=== PATIENT | male | born 1955 | race Two or more races ===

== ENCOUNTER 2017-10-30 15:08 | Inpatient (IN) | payer MEDICAID ==
[~2017-10-30] VITALS: Ht 170.2 cm; Wt 52.1 kg
[~2017-10-30 15:08] MED LIST: MORP1CAP22 PO; PANT40T PO; PERCOT PO
[2017-10-30] MEDS ORDERED: SODIUM CHLORIDE 0.9% 1,000 ML IV ONE ×2 (15:47)
[2017-10-30] MEDS ORDERED: PANTOPRAZOLE 40 MG/10 ML VIAL IV ONE (16:00)
[2017-10-30 17:37] LABS: Basophils # (auto) 0.1 uL; Basophils % (auto) 0.7 % (0.0-2.0); Eosinophils # (auto) 0.4 uL; Eosinophils % (auto) 5.5 % (0.0-7.0); Hematocrit 33.9 % (41.0-53.0); Lymphocytes # (auto) 0.5 uL; Mean Corpuscular Hemoglobin 27.9 pg (28.0-32.0); Mean Corpuscular Hgb Conc. 32.6 g/dL (32.0-36.0); Mean Corpuscular Volume 85.7 fL (80.0-100.0); Monocytes # (auto) 0.6 uL; Monocytes % (auto) 9.3 % (0.0-12.0); Neutrophils # (auto) 5.4 uL; Neutrophils % (auto) 77.5 % (37.0-80.0); Platelet Count (auto) 370 10^3/uL (140-450); Red Blood Cells 3.95 10^6/uL (4.5-5.90); White Blood Cell 6.9 10^3/uL (4.4-10.8)
[2017-10-30 17:53] LABS: INR 0.98 (0.9-1.15); Partial Thromboplastin Time 28.5 sec (23.78-33.04); Prothrombin Time 10.5 sec (9.27-12.13)
[2017-10-30 18:03] LABS: Alanine Aminotransferase 16 U/L (16-61); Alkaline Phosphatase 83 U/L (45-117); Anion Gap 6 (5-15); Aspartate Aminotransferase 14 U/L (15-37); BUN/Creatinine Ratio 16.9; Bilirubin, Total 0.2 mg/dL (0.2-1.0); Blood Urea Nitrogen 15 mg/dL (7-18); Calcium 8.7 mg/dL (8.5-10.1); Carbon Dioxide 26 mmol/L (21-32); Chloride 107 mmol/L (98-107); GFR African American 111 mL/min; GFR Non-African American 92 mL/min; Glucose 98 mg/dL (74-106); Potassium 3.6 mmol/L (3.5-5.1); Sodium 139 mmol/L (136-145); Total Protein 7.2 g/dL (6.4-8.2)
[2017-10-30 18:04] LABS: Red Cell Distribution Width 27.3 % (11.8-14.3)
[2017-10-30] MEDS ORDERED: HYDROcodone-ACET 5/325MG TAB PO PRN (20:00)
[2017-10-30] MEDS ORDERED: PROMETHAZINE HCL 25 MG/ML 1ML IV PRN (20:00)
[2017-10-30] MEDS ORDERED: MORPHINE SULF INJ 2 MG/ML SYRINGE 1ML IV PRN ×2 (20:00)
[2017-10-30] MEDS ORDERED: NITROGLYCERIN 0.4 MG SL TAB SL PRN (20:00)
[2017-10-30] MEDS ORDERED: ACETAMINOPHEN 500 MG TAB PO PRN (20:00)
[2017-10-30] MEDS ORDERED: TEMAZEPAM 15 MG CAP PO PRN (20:00)
[2017-10-30] MEDS ORDERED: cefTRIAXone 1GM/10ml IVPUSH 10 ML IV ONE (20:00)
[2017-10-30] MEDS ORDERED: LORazepam 0.5 MG TAB PO PRN (20:00)
[2017-10-30] MEDS ORDERED: OXYCODONE W/ ACETAMINOPHEN 5/325MG TABLET PO PRN (20:15)
[2017-10-30] MEDS ORDERED: HYDROmorphone HCL 2 MG/ML VL IV ONE (20:15)
[2017-10-30] MEDS ORDERED: HYDROmorphone HCL 2 MG/ML VL IV PRN (20:15)
[2017-10-30] MEDS: SODIUM CHLORIDE 0.9% 1,000 ML IV SCH (20:52)
[2017-10-30 22:45] VITALS: BP 135/72
[2017-10-30] MEDS ORDERED: metroNIDAZOLE 500MG/100ML 100 ML IV ONE (23:12)
[2017-10-31] MEDS ORDERED: metroNIDAZOLE 500MG/100ML 100 ML IV SCH
[2017-10-31] MEDS ORDERED: HYDROmorphone HCL 2 MG/ML VL ONE (00:11)
[2017-10-31] MEDS: SODIUM CHLORIDE 0.9% 1,000 ML IV SCH ×4 (03:52→18:40)
[2017-10-31] MEDS: HYDROmorphone HCL 2 MG/ML VL IV PRN ×2 (04:22→08:45)
[2017-10-31] MEDS ORDERED: CAPE1TAB11 PO (04:43)
[2017-10-31] MEDS ORDERED: OXYC325T14 PO (04:43)
[2017-10-31] MEDS ORDERED: FENT25DI2 TD (04:43)
[2017-10-31] MEDS ORDERED: DOCU100T15 PO (04:43)
[2017-10-31 05:08] VITALS: BP 123/71
[2017-10-31] MEDS: metroNIDAZOLE 500MG/100ML 100 ML IV SCH ×3 (05:38→18:39)
[2017-10-31 07:09] LABS: Urine Bacteria NONE SEEN /hpf (None Seen); Urine Blood Negative /uL (Negative); Urine Mucus FEW (None Seen); Urine Specific Gravity 1.016 (1.001-1.035); Urine Sperm PRESENT /hpf (None Seen); Urine WBC 2 /hpf (0 - 3)
[2017-10-31 09:00] VITALS: BP 126/71
[2017-10-31] MEDS ORDERED: cefTRIAXone 1GM/10ml IVPUSH 10 ML IV SCH ×2 (09:00)
[2017-10-31] MEDS ORDERED: PANTOPRAZOLE 40 MG TAB PO SCH (10:00)
[2017-10-31] MEDS ORDERED: MORPHINE SULF INJ 2 MG/ML SYRINGE 1ML IV PRN (12:00)
[2017-10-31] MEDS ORDERED: LORazepam 0.5 MG TAB PO PRN (12:00)
[2017-10-31] MEDS: PANTOPRAZOLE 40 MG TAB PO SCH (12:00)
[2017-10-31] MEDS ORDERED: NITROGLYCERIN 0.4 MG SL TAB SL PRN (12:00)
[2017-10-31] MEDS ORDERED: OXYCODONE W/ ACETAMINOPHEN 5/325MG TABLET PO PRN (12:00)
[2017-10-31 12:21] VITALS: BP 106/51
[2017-10-31] MEDS: OXYCODONE HCL 5MG TAB PO PRN ×2 (15:10→19:59)
[2017-10-31 17:04] VITALS: BP 112/68
[2017-10-31] MEDS ORDERED: Ensure Enlive Strawberry 8oz Bottle PO SCH (18:00)
[2017-10-31] MEDS: Ensure HIGH Protein Chocolate 8oz Bottle PO SCH (18:40)
[2017-10-31] MEDS ORDERED: MEPERIDINE HCL (25 MG/ML) 1ML VIAL IV ONE (21:30)
[2017-10-31] MEDS: SENNA 8.6 MG TAB PO SCH (21:50)
[2017-10-31 22:00] VITALS: BP 129/72
[2017-11-01] MEDS: metroNIDAZOLE 500MG/100ML 100 ML IV SCH ×4 (00:26→17:33)
[2017-11-01] MEDS: SODIUM CHLORIDE 0.9% 1,000 ML IV SCH ×3 (01:00→13:01)
[2017-11-01] MEDS: OXYCODONE HCL 5MG TAB PO PRN ×4 (02:51→20:50)
[2017-11-01 05:00] VITALS: BP 135/71
[2017-11-01 05:40] LABS: Basophils # (auto) 0 uL; Basophils % (auto) 0.7 % (0.0-2.0); Eosinophils # (auto) 0.8 uL; Eosinophils % (auto) 12.1 % (0.0-7.0); Hematocrit 29.5 % (41.0-53.0); Hemoglobin 9.9 g/dL (13.5-17.5); Lymphocytes # (auto) 0.6 uL; Lymphocytes % (auto) 9.1 % (10.0-50.0); Mean Corpuscular Hemoglobin 29.1 pg (28.0-32.0); Mean Corpuscular Hgb Conc. 33.6 g/dL (32.0-36.0); Mean Corpuscular Volume 86.6 fL (80.0-100.0); Monocytes # (auto) 0.6 uL; Monocytes % (auto) 9.8 % (0.0-12.0); Neutrophils # (auto) 4.4 uL; Neutrophils % (auto) 68.3 % (37.0-80.0); Platelet Count (auto) 322 10^3/uL (140-450); White Blood Cell 6.4 10^3/uL (4.4-10.8)
[2017-11-01 05:54] LABS: BUN/Creatinine Ratio 11.1; Calcium 7.9 mg/dL (8.5-10.1); Potassium 3.6 mmol/L (3.5-5.1)
[2017-11-01 06:18] LABS: Red Cell Distribution Width 25.9 % (11.8-14.3)
[2017-11-01 09:00] VITALS: BP 142/78
[2017-11-01] MEDS ORDERED: fentaNYL 25MCG/HR 25 MCG/HR PAT TD SCH (09:00)
[2017-11-01] MEDS ORDERED: fentaNYL 50MCG/HR 50 MCG/HR PAT TD SCH (10:00)
[2017-11-01] MEDS: Ensure HIGH Protein Chocolate 8oz Bottle PO SCH ×3 (10:05→17:33)
[2017-11-01] MEDS: PANTOPRAZOLE 40 MG TAB PO SCH (10:49)
[2017-11-01 13:00] VITALS: BP 142/76
[2017-11-01 17:00] VITALS: BP 140/74
[2017-11-01 21:56] VITALS: BP 138/78
[2017-11-01] MEDS: SENNA 8.6 MG TAB PO SCH (22:00)
[2017-11-02] MEDS: SODIUM CHLORIDE 0.9% 1,000 ML IV SCH ×2 (01:38→09:00)
[2017-11-02] MEDS: metroNIDAZOLE 500MG/100ML 100 ML IV SCH ×3 (01:38→12:00)
[2017-11-02] MEDS: OXYCODONE HCL 5MG TAB PO PRN ×4 (02:31→15:08)
[2017-11-02 04:52] VITALS: BP 127/75
[2017-11-02 06:32] LABS: Hematocrit 30.8 % (41.0-53.0); Hemoglobin 10.2 g/dL (13.5-17.5); Mean Corpuscular Hemoglobin 28.7 pg (28.0-32.0); Mean Corpuscular Hgb Conc. 33.3 g/dL (32.0-36.0); Mean Corpuscular Volume 86.1 fL (80.0-100.0); Platelet Count (auto) 360 10^3/uL (140-450); Red Blood Cells 3.57 10^6/uL (4.5-5.90); White Blood Cell 7.3 10^3/uL (4.4-10.8)
[2017-11-02 06:47] LABS: BUN/Creatinine Ratio 11.7; Potassium 3.4 mmol/L (3.5-5.1); Red Cell Distribution Width 26.6 % (11.8-14.3)
[2017-11-02 06:48] LABS: Band Neutrophils % (manual) 0; Basophils % (manual) 0 (0.0-2.0); Blast Cells 0; Metamyelocytes % 0; Myelocytes % 0; Promyelocytes % 0; Reactive Lymphocytes 0
[2017-11-02 08:00] VITALS: BP 141/74
[2017-11-02] MEDS: Ensure HIGH Protein Chocolate 8oz Bottle PO SCH ×2 (08:00→12:00)
[2017-11-02 08:12] LABS: Eosinophils % (manual) 16 (0-7); Lymphocytes % (manual) 8 (10.0-50.0); Monocytes % (manual) 8 (0-12)
[2017-11-02 09:17] VITALS: BP 141/74
[2017-11-02] MEDS: PANTOPRAZOLE 40 MG TAB PO SCH (10:23)
[2017-11-02 12:28] VITALS: BP 120/71
[2017-11-02 13:17] VITALS: BP 120/71
== END 2017-11-02 16:45 | disposition home or self-care (01) | DRG 254 ==
LOC: EDBD 15:08 → ER 15:11 → WEST WING 15:12 → ER 21:25 → TELE-WESTW 23:50 → WEST WING 11-01 02:08
PROVIDERS: ADMIT Anesthesiology; ATTEND Internal Medicine
DX: K62.7 Radiation proctitis (principal); R64 Cachexia; E44.0 Moderate protein-calorie malnutrition; K92.2 Gastrointestinal hemorrhage, unspecified; F11.20 Opioid dependence, uncomplicated; D62 Acute posthemorrhagic anemia; C18.9 Malignant neoplasm of colon, unspecified; Y84.2 Radiological procedure and radiotherapy as the cause of abnormal reaction of the patient, or of later complication, without mention of misadventure at the time of the procedure; E61.1 Iron deficiency; G89.29 Other chronic pain; Z88.6 Allergy status to analgesic agent; Z72.0 Tobacco use; Z83.3 Family history of diabetes mellitus; Z85.048 Personal history of other malignant neoplasm of rectum, rectosigmoid junction, and anus; Z91.19 Patient's noncompliance with other medical treatment and regimen; Z92.3 Personal history of irradiation; Z90.89 Acquired absence of other organs; Z80.9 Family history of malignant neoplasm, unspecified; Z80.1 Family history of malignant neoplasm of trachea, bronchus and lung; Z68.1 Body mass index [BMI] 19.9 or less, adult; Y93.89 Activity, other specified; Y92.89 Other specified places as the place of occurrence of the external cause; Y99.8 Other external cause status
CPT/HCPCS: 36415; 71045; 74176; 80048; 80053; 81001; 83880; 84484; 85007; 85025; 85027; 85610; 85730; 87081; 93005; 96361; 96365; 96375; 96376; C9113; J0696; J3490

== ENCOUNTER 2017-11-13 13:40 | Emergency (ER) | payer MEDICAID ==
[~2017-11-13] VITALS: Ht 175.3 cm; Wt 65.8 kg
[~2017-11-13 13:40] MED LIST changes: +CAPE1TAB11 PO; +DOCU100T15 PO; +FENT25DI2 TD; -MORP1CAP22 PO; +OXYC325T14 PO; -PERCOT PO
[2017-11-13] MEDS ORDERED: SODIUM CHLORIDE 0.9% 1,000 ML IV ONE (16:09)
[2017-11-13] MEDS ORDERED: PROMETHAZINE HCL 25 MG/ML 1ML IV PRN (16:15)
[2017-11-13] MEDS ORDERED: MORPHINE SULFATE 4 MG/ML SYR/VIAL IV ONE (16:15)
[2017-11-13 16:44] LABS: Basophils # (auto) 0.1 uL; Eosinophils # (auto) 0.3 uL; Hemoglobin 12.4 g/dL (13.5-17.5); Lymphocytes # (auto) 0.7 uL; Monocytes # (auto) 1.2 uL; Neutrophils % (auto) 74.3 % (37.0-80.0)
[2017-11-13 16:45] LABS: Basophils % (auto) 0.7 % (0.0-2.0); Eosinophils % (auto) 3.8 % (0.0-7.0); Hematocrit 37.1 % (41.0-53.0); Mean Corpuscular Hemoglobin 29.4 pg (28.0-32.0); Mean Corpuscular Hgb Conc. 33.5 g/dL (32.0-36.0); Mean Corpuscular Volume 87.7 fL (80.0-100.0); Monocytes % (auto) 13.2 % (0.0-12.0); Neutrophils # (auto) 6.7 uL; Platelet Count (auto) 503 10^3/uL (140-450); Red Blood Cells 4.23 10^6/uL (4.5-5.90)
[2017-11-13 16:49] LABS: Red Cell Distribution Width 22.5 % (11.8-14.3)
[2017-11-13 16:52] LABS: Albumin 3.4 g/dL (3.4-5.0); BUN/Creatinine Ratio 24.6; Magnesium 2.5 mg/dL (1.6-2.6); Potassium 3.9 mmol/L (3.5-5.1)
[2017-11-13 16:55] LABS: Bilirubin, Total 0.2 mg/dL (0.2-1.0); Total Protein 8.1 g/dL (6.4-8.2)
[2017-11-13 17:09] VITALS: BP 130/68
== END 2017-11-13 18:13 | disposition home or self-care (01) ==
LOC: EDBD 13:40 → ER 13:40
DX: R10.32 Left lower quadrant pain (principal); G89.4 Chronic pain syndrome; K21.9 Gastro-esophageal reflux disease without esophagitis; M19.90 Unspecified osteoarthritis, unspecified site; Z88.6 Allergy status to analgesic agent; Z88.8 Allergy status to other drugs, medicaments and biological substances; Z85.038 Personal history of other malignant neoplasm of large intestine
CPT/HCPCS: 36415; 74176; 80053; 83690; 83735; 85025; 96361; 96374; 96375; 99285; J2270; J2550; J7030; 93005

== ENCOUNTER 2017-11-18 05:32 | Emergency (ER) | payer MEDICAID ==
[~2017-11-18] VITALS: Ht 175.3 cm; Wt 59.0 kg
[2017-11-18] MEDS ORDERED: MORPHINE SULFATE 4 MG/ML SYR/VIAL IV ONE (07:00)
[2017-11-18] MEDS ORDERED: ONDANSETRON HCL 4 MG/2 ML VIAL IV ONE (07:00)
[2017-11-18] MEDS ORDERED: SODIUM CHLORIDE 0.9% 1,000 ML IV ONE ×2 (07:12)
[2017-11-18 07:20] VITALS: BP 128/76
[2017-11-18 07:53] LABS: Basophils # (auto) 0.1 uL; Basophils % (auto) 0.9 % (0.0-2.0); Eosinophils # (auto) 0.6 uL; Eosinophils % (auto) 7.8 % (0.0-7.0); Hematocrit 37.1 % (41.0-53.0); Hemoglobin 12.1 g/dL (13.5-17.5); Lymphocytes # (auto) 0.7 uL; Lymphocytes % (auto) 9.9 % (10.0-50.0); Mean Corpuscular Hemoglobin 29.2 pg (28.0-32.0); Mean Corpuscular Hgb Conc. 32.7 g/dL (32.0-36.0); Mean Corpuscular Volume 89.4 fL (80.0-100.0); Monocytes % (auto) 13.4 % (0.0-12.0); Neutrophils # (auto) 5.1 uL; Platelet Count (auto) 408 10^3/uL (140-450); Red Blood Cells 4.16 10^6/uL (4.5-5.90); Red Cell Distribution Width 18.5 % (11.8-14.3); White Blood Cell 7.5 10^3/uL (4.4-10.8)
[2017-11-18 08:04] LABS: INR 0.95 (0.9-1.15); Partial Thromboplastin Time 26.8 sec (23.78-33.04); Prothrombin Time 10.2 sec (9.27-12.13)
[2017-11-18 08:15] LABS: Alanine Aminotransferase 17 U/L (16-61); Albumin 3.2 g/dL (3.4-5.0); Alkaline Phosphatase 93 U/L (45-117); Amylase 115 U/L (25-115); Anion Gap 7 (5-15); Aspartate Aminotransferase 13 U/L (15-37); BUN/Creatinine Ratio 18.8; Bilirubin, Total 0.2 mg/dL (0.2-1.0); Blood Urea Nitrogen 13 mg/dL (7-18); Calcium 8.8 mg/dL (8.5-10.1); Carbon Dioxide 28 mmol/L (21-32); Chloride 106 mmol/L (98-107); GFR African American 149 mL/min; GFR Non-African American 123 mL/min; Glucose 89 mg/dL (74-106); Lipase 336 U/L (73-393); Magnesium 2.6 mg/dL (1.6-2.6); Sodium 141 mmol/L (136-145); Total Protein 7.9 g/dL (6.4-8.2)
[2017-11-18] MEDS ORDERED: HYDROcodone-ACET 10/325MG TAB PO ONE (11:00)
== END 2017-11-18 11:17 | disposition home or self-care (01) ==
LOC: EDBD 05:32 → ER 05:35
DX: R10.13 Epigastric pain (principal); R19.7 Diarrhea, unspecified; K21.9 Gastro-esophageal reflux disease without esophagitis; Z88.6 Allergy status to analgesic agent
CPT/HCPCS: 36415; 74176; 80053; 82150; 83605; 83690; 83735; 84484; 85025; 85610; 85730; 87040; 87077; 87186; 93005; 96361; 96374; 96375; 99285; J2270; J2405

== ENCOUNTER 2017-11-19 06:23 | Inpatient (IN) | payer MEDICAID ==
[~2017-11-19] VITALS: Ht 170.2 cm; Wt 55.9 kg
[2017-11-19 08:16] LABS: Basophils # (auto) 0.1 uL; Basophils % (auto) 0.8 % (0.0-2.0); Eosinophils # (auto) 0.4 uL; Eosinophils % (auto) 4.3 % (0.0-7.0); Hematocrit 36.2 % (41.0-53.0); Hemoglobin 11.8 g/dL (13.5-17.5); Lymphocytes # (auto) 0.8 uL; Mean Corpuscular Hemoglobin 29.2 pg (28.0-32.0); Mean Corpuscular Hgb Conc. 32.7 g/dL (32.0-36.0); Mean Corpuscular Volume 89.4 fL (80.0-100.0); Monocytes # (auto) 0.9 uL; Monocytes % (auto) 10.8 % (0.0-12.0); Neutrophils # (auto) 6.3 uL; Neutrophils % (auto) 74.1 % (37.0-80.0); Platelet Count (auto) 414 10^3/uL (140-450); Red Blood Cells 4.04 10^6/uL (4.5-5.90); Red Cell Distribution Width 18.1 % (11.8-14.3); White Blood Cell 8.5 10^3/uL (4.4-10.8)
[2017-11-19 08:26] LABS: Albumin 3.1 g/dL (3.4-5.0); BUN/Creatinine Ratio 15.9; Calcium 8.4 mg/dL (8.5-10.1)
[2017-11-19 08:29] LABS: Bilirubin, Total 0.2 mg/dL (0.2-1.0); Total Protein 7.5 g/dL (6.4-8.2)
[2017-11-19] MEDS ORDERED: MORPHINE SULFATE 4 MG/ML SYR/VIAL IV ONE (08:45)
[2017-11-19] MEDS ORDERED: ONDANSETRON HCL 4 MG/2 ML VIAL IV ONE (08:45)
[2017-11-19 09:03] LABS: INR 0.93 (0.9-1.15); Partial Thromboplastin Time 26.8 sec (23.78-33.04)
[2017-11-19] MEDS ORDERED: IOHEXOL 300 MG/ML 100ML BOTTLE IJ ONE (09:53)
[2017-11-19] MEDS ORDERED: NITROGLYCERIN 0.4 MG SL TAB SL PRN (10:00)
[2017-11-19] MEDS ORDERED: ACETAMINOPHEN 500 MG TAB PO PRN (10:00)
[2017-11-19] MEDS ORDERED: LORazepam 0.5 MG TAB PO PRN (10:00)
[2017-11-19] MEDS ORDERED: cefTRIAXone 1GM/10ml IVPUSH 10 ML IV ONE (10:00)
[2017-11-19] MEDS ORDERED: MORPHINE SULF INJ 2 MG/ML SYRINGE 1ML IV PRN (10:00)
[2017-11-19 10:10] LABS: Amylase 123 U/L (25-115); Lipase 333 U/L (73-393)
[2017-11-19] MEDS: SODIUM CHLORIDE 0.9% 1,000 ML IV SCH ×2 (11:01→19:52)
[2017-11-19] MEDS: PROMETHAZINE HCL 25 MG/ML 1ML IV PRN ×2 (11:02→15:40)
[2017-11-19] MEDS: PANTOPRAZOLE 40 MG TAB PO SCH (11:02)
[2017-11-19] MEDS: MORPHINE SULFATE 4 MG/ML SYR/VIAL IV PRN ×2 (11:02→15:40)
[2017-11-19] MEDS: metroNIDAZOLE 500MG/100ML 100 ML IV SCH ×3 (11:24→23:45)
[2017-11-19 11:49] LABS: Hematocrit 33.3 % (41.0-53.0)
[2017-11-19] MEDS: HYDROcodone-ACET 5/325MG TAB PO PRN ×2 (13:37→20:49)
[2017-11-19 18:12] LABS: Hematocrit 31.1 % (41.0-53.0); Hemoglobin 10.2 g/dL (13.5-17.5)
[2017-11-19] MEDS: OXYCODONE HCL 5MG TAB PO PRN (18:41)
[2017-11-19 20:30] VITALS: BP 125/69
[2017-11-19 21:15] VITALS: BP 102/52
[2017-11-19] MEDS: TEMAZEPAM 15 MG CAP PO PRN (21:57)
[2017-11-19] MEDS: MORPHINE SULF 15mg ER tab PO SCH (21:57)
[2017-11-20 02:26] LABS: Hematocrit 30.9 % (41.0-53.0); Hemoglobin 10.1 g/dL (13.5-17.5)
[2017-11-20] MEDS: HYDROcodone-ACET 5/325MG TAB PO PRN ×2 (03:19→12:18)
[2017-11-20] MEDS: SODIUM CHLORIDE 0.9% 1,000 ML IV SCH ×2 (04:35→18:00)
[2017-11-20] MEDS: metroNIDAZOLE 500MG/100ML 100 ML IV SCH ×3 (05:30→18:00)
[2017-11-20 05:43] VITALS: BP 145/72
[2017-11-20] MEDS: OXYCODONE HCL 5MG TAB PO PRN ×3 (06:11→20:21)
[2017-11-20 06:16] LABS: Basophils # (auto) 0.1 uL; Eosinophils # (auto) 0.5 uL; Eosinophils % (auto) 7.4 % (0.0-7.0); Hematocrit 32.4 % (41.0-53.0); Hemoglobin 10.8 g/dL (13.5-17.5); Lymphocytes # (auto) 0.9 uL; Mean Corpuscular Hgb Conc. 33.3 g/dL (32.0-36.0); Mean Corpuscular Volume 90.3 fL (80.0-100.0); Monocytes # (auto) 0.6 uL; Monocytes % (auto) 8.7 % (0.0-12.0); Neutrophils # (auto) 4.7 uL; Neutrophils % (auto) 69.9 % (37.0-80.0); Platelet Count (auto) 338 10^3/uL (140-450); Red Blood Cells 3.58 10^6/uL (4.5-5.90); Red Cell Distribution Width 17.4 % (11.8-14.3); White Blood Cell 6.8 10^3/uL (4.4-10.8)
[2017-11-20 06:37] LABS: Albumin 2.8 g/dL (3.4-5.0); Bilirubin, Total 0.4 mg/dL (0.2-1.0); Calcium 8.1 mg/dL (8.5-10.1); Total Protein 6.5 g/dL (6.4-8.2)
[2017-11-20 08:47] VITALS: BP 130/73
[2017-11-20] MEDS: cefTRIAXone 1GM/10ml IVPUSH 10 ML IV SCH (10:16)
[2017-11-20] MEDS: MORPHINE SULF 15mg ER tab PO SCH ×2 (10:16→22:55)
[2017-11-20] MEDS: PANTOPRAZOLE 40 MG TAB PO SCH (10:17)
[2017-11-20] MEDS: Ensure Enlive Strawberry 8oz Bottle PO SCH ×2 (11:48→18:00)
[2017-11-20 12:46] VITALS: BP 132/77
[2017-11-20 12:56] LABS: Urine Bacteria NONE SEEN /hpf (None Seen); Urine Blood Negative /uL (Negative); Urine Specific Gravity 1.002 (1.001-1.035); Urine WBC 2 /hpf (0 - 3)
[2017-11-20 17:06] VITALS: BP 119/71
[2017-11-20 17:58] LABS: Hematocrit 33.6 % (41.0-53.0); Hemoglobin 11.1 g/dL (13.5-17.5)
[2017-11-20] MEDS: TEMAZEPAM 15 MG CAP PO PRN (21:14)
[2017-11-20 22:00] VITALS: BP 133/82
[2017-11-21] MEDS: metroNIDAZOLE 500MG/100ML 100 ML IV SCH ×5 (00:22→23:32)
[2017-11-21] MEDS: SODIUM CHLORIDE 0.9% 1,000 ML IV SCH ×3 (02:19→12:59)
[2017-11-21] MEDS: HYDROcodone-ACET 5/325MG TAB PO PRN ×2 (02:20→12:59)
[2017-11-21 04:18] LABS: Basophils # (auto) 0.1 uL; Basophils % (auto) 0.9 % (0.0-2.0); Eosinophils # (auto) 0.6 uL; Eosinophils % (auto) 8.6 % (0.0-7.0); Hematocrit 30.8 % (41.0-53.0); Hemoglobin 10.1 g/dL (13.5-17.5); Lymphocytes # (auto) 0.7 uL; Lymphocytes % (auto) 8.8 % (10.0-50.0); Mean Corpuscular Hemoglobin 29.2 pg (28.0-32.0); Mean Corpuscular Hgb Conc. 32.8 g/dL (32.0-36.0); Mean Corpuscular Volume 89.2 fL (80.0-100.0); Monocytes # (auto) 0.8 uL; Monocytes % (auto) 11.2 % (0.0-12.0); Neutrophils # (auto) 5.3 uL; Neutrophils % (auto) 70.5 % (37.0-80.0); Platelet Count (auto) 312 10^3/uL (140-450); Red Blood Cells 3.45 10^6/uL (4.5-5.90); Red Cell Distribution Width 17.2 % (11.8-14.3); White Blood Cell 7.5 10^3/uL (4.4-10.8)
[2017-11-21] MEDS: OXYCODONE HCL 5MG TAB PO PRN ×3 (04:26→20:18)
[2017-11-21 04:37] LABS: Calcium 8.2 mg/dL (8.5-10.1)
[2017-11-21 04:40] LABS: BUN/Creatinine Ratio 21.9
[2017-11-21 04:46] VITALS: BP 132/72
[2017-11-21] MEDS: Ensure Enlive Strawberry 8oz Bottle PO SCH ×3 (07:51→17:51)
[2017-11-21 08:55] VITALS: BP 140/73
[2017-11-21] MEDS: cefTRIAXone 1GM/10ml IVPUSH 10 ML IV SCH (11:45)
[2017-11-21] MEDS: PANTOPRAZOLE 40 MG TAB PO SCH (11:46)
[2017-11-21] MEDS: MORPHINE SULF 15mg ER tab PO SCH ×2 (11:46→21:31)
[2017-11-21 12:00] VITALS: BP 127/72
[2017-11-21 16:53] VITALS: BP 108/65
[2017-11-21 21:36] VITALS: BP 94/47
[2017-11-21] MEDS: TEMAZEPAM 15 MG CAP PO PRN (23:32)
[2017-11-22] MEDS: OXYCODONE HCL 5MG TAB PO PRN ×2 (02:16→07:01)
[2017-11-22 04:51] VITALS: BP 143/80
[2017-11-22 05:32] LABS: Basophils # (auto) 0.1 uL; Basophils % (auto) 0.9 % (0.0-2.0); Eosinophils # (auto) 0.6 uL; Eosinophils % (auto) 7.6 % (0.0-7.0); Hematocrit 31.1 % (41.0-53.0); Hemoglobin 10.3 g/dL (13.5-17.5); Lymphocytes # (auto) 0.9 uL; Lymphocytes % (auto) 12.6 % (10.0-50.0); Mean Corpuscular Hemoglobin 29.4 pg (28.0-32.0); Mean Corpuscular Volume 89.1 fL (80.0-100.0); Monocytes # (auto) 1.2 uL; Monocytes % (auto) 16.2 % (0.0-12.0); Neutrophils # (auto) 4.7 uL; Neutrophils % (auto) 62.7 % (37.0-80.0); Platelet Count (auto) 299 10^3/uL (140-450); Red Blood Cells 3.49 10^6/uL (4.5-5.90); Red Cell Distribution Width 17.7 % (11.8-14.3); White Blood Cell 7.5 10^3/uL (4.4-10.8)
[2017-11-22 05:45] LABS: BUN/Creatinine Ratio 20.6; Calcium 8.5 mg/dL (8.5-10.1); Potassium 4.3 mmol/L (3.5-5.1)
[2017-11-22] MEDS: metroNIDAZOLE 500MG/100ML 100 ML IV SCH ×2 (05:58→12:02)
[2017-11-22] MEDS: HYDROcodone-ACET 5/325MG TAB PO PRN (06:00)
[2017-11-22] MEDS ORDERED: HYDROmorphone HCL 2 MG/ML VL IV PRN (08:45)
[2017-11-22 09:06] VITALS: BP 126/93
[2017-11-22] MEDS: cefTRIAXone 1GM/10ml IVPUSH 10 ML IV SCH (10:54)
[2017-11-22] MEDS: SODIUM CHLORIDE 0.9% 1,000 ML IV SCH ×2 (10:54→17:48)
[2017-11-22] MEDS: MORPHINE SULF 15mg ER tab PO SCH (10:54)
[2017-11-22] MEDS: Ensure Enlive Strawberry 8oz Bottle PO SCH ×2 (10:54→12:02)
[2017-11-22] MEDS: PANTOPRAZOLE 40 MG TAB PO SCH (10:55)
[2017-11-22 13:00] VITALS: BP 156/77
[2017-11-22 17:00] VITALS: BP 136/79
== END 2017-11-22 17:45 | disposition home or self-care (01) | DRG 240 ==
LOC: EDBD 06:23 → ER 06:23 → TELE 06:24 → TELE-WESTW 20:12
PROVIDERS: ADMIT Internal Medicine; ATTEND Internal Medicine
DX: C19 Malignant neoplasm of rectosigmoid junction (principal); K85.90 Acute pancreatitis without necrosis or infection, unspecified; E44.0 Moderate protein-calorie malnutrition; C79.9 Secondary malignant neoplasm of unspecified site; D50.0 Iron deficiency anemia secondary to blood loss (chronic); Z68.1 Body mass index [BMI] 19.9 or less, adult; D63.8 Anemia in other chronic diseases classified elsewhere; I70.8 Atherosclerosis of other arteries; K62.7 Radiation proctitis; K21.9 Gastro-esophageal reflux disease without esophagitis; Z88.6 Allergy status to analgesic agent; Z80.1 Family history of malignant neoplasm of trachea, bronchus and lung; Z83.3 Family history of diabetes mellitus; Z88.8 Allergy status to other drugs, medicaments and biological substances; Z92.3 Personal history of irradiation; Z72.0 Tobacco use; Z92.21 Personal history of antineoplastic chemotherapy
CPT/HCPCS: 36415; 74177; 80048; 80053; 81001; 82150; 83690; 85014; 85018; 85025; 85610; 85730; 87081; 96374; 96375; 96376; A6257; J0696; J2405; J3490

== ENCOUNTER 2017-12-17 13:53 | Inpatient (IN) | payer MEDICAID ==
[~2017-12-17] VITALS: Ht 172.7 cm; Wt 55.1 kg
[~2017-12-17 13:53] MED LIST changes: -DOCU100T15 PO; -FENT25DI2 TD
[2017-12-17 14:51] LABS: Basophils # (auto) 0 uL; Basophils % (auto) 0.4 % (0.0-2.0); Eosinophils # (auto) 0.1 uL; Eosinophils % (auto) 1.6 % (0.0-7.0); Hematocrit 31.8 % (41.0-53.0); Hemoglobin 10.4 g/dL (13.5-17.5); Lymphocytes # (auto) 0.5 uL; Lymphocytes % (auto) 6.4 % (10.0-50.0); Mean Corpuscular Hemoglobin 29.1 pg (28.0-32.0); Mean Corpuscular Hgb Conc. 32.8 g/dL (32.0-36.0); Mean Corpuscular Volume 88.7 fL (80.0-100.0); Monocytes # (auto) 0.9 uL; Monocytes % (auto) 11.4 % (0.0-12.0); Neutrophils # (auto) 6.6 uL; Neutrophils % (auto) 80.2 % (37.0-80.0); Platelet Count (auto) 372 10^3/uL (140-450); Red Blood Cells 3.59 10^6/uL (4.5-5.90); Red Cell Distribution Width 16.7 % (11.8-14.3); White Blood Cell 8.2 10^3/uL (4.4-10.8)
[2017-12-17 15:10] LABS: Albumin 2.9 g/dL (3.4-5.0); BUN/Creatinine Ratio 15.9; Bilirubin, Total 0.2 mg/dL (0.2-1.0); Calcium 8.6 mg/dL (8.5-10.1); Potassium 3.7 mmol/L (3.5-5.1); Total Protein 7.3 g/dL (6.4-8.2)
[2017-12-17] MEDS ORDERED: MORPHINE SULFATE 4 MG/ML SYR/VIAL IV ONE (15:30)
[2017-12-17] MEDS ORDERED: ONDANSETRON HCL 4 MG/2 ML VIAL IV ONE (15:30)
[2017-12-17 15:32] LABS: Urine Bacteria NONE SEEN /hpf (None Seen); Urine Blood Negative /uL (Negative); Urine WBC 5 /hpf (0 - 3)
[2017-12-17 15:34] LABS: INR 0.99 (0.9-1.15); Prothrombin Time 10.6 sec (9.27-12.13)
[2017-12-17] MEDS ORDERED: cefTRIAXone 1GM/10ml IVPUSH 10 ML IV ONE (16:30)
[2017-12-17] MEDS ORDERED: ACETAMINOPHEN 500 MG TAB PO PRN (16:30)
[2017-12-17] MEDS ORDERED: PROMETHAZINE HCL 25 MG/ML 1ML IV PRN (16:30)
[2017-12-17] MEDS ORDERED: MORPHINE SULF INJ 2 MG/ML SYRINGE 1ML IV PRN (16:30)
[2017-12-17] MEDS ORDERED: NITROGLYCERIN 0.4 MG SL TAB SL PRN (16:30)
[2017-12-17] MEDS: SODIUM CHLORIDE 0.9% 1,000 ML IV SCH (16:30)
[2017-12-17] MEDS: metroNIDAZOLE 500MG/100ML 100 ML IV SCH (17:25)
[2017-12-17] MEDS: ACETAMINOPHEN PO SCH ×2 (18:00→22:00)
[2017-12-17] MEDS: OXYCODONE PO SCH ×2 (18:00→22:00)
[2017-12-17] MEDS: CAPECITABINE 500 MG PO SCH (19:00)
[2017-12-17 19:40] VITALS: BP 127/73
[2017-12-17 19:46] LABS: Hematocrit 31.7 % (41.0-53.0); Hemoglobin 10.3 g/dL (13.5-17.5)
[2017-12-17] MEDS: MORPHINE SULFATE 4 MG/ML SYR/VIAL IV PRN (20:07)
[2017-12-17 22:12] VITALS: BP 127/73
[2017-12-17] MEDS: MEGESTROL ACET 400MG/10ML ORAL SUSP PO SCH (22:14)
[2017-12-17] MEDS: PANTOPRAZOLE 40 MG TAB PO SCH (22:14)
[2017-12-17] MEDS: MORPHINE SULF 30 mg ER tab PO SCH (22:15)
[2017-12-17] MEDS ORDERED: ONDA4TAB5 PO (22:39)
[2017-12-18] MEDS: SODIUM CHLORIDE 0.9% 1,000 ML IV SCH ×4 (00:20→22:45)
[2017-12-18] MEDS: metroNIDAZOLE 500MG/100ML 100 ML IV SCH ×3 (01:02→17:15)
[2017-12-18 01:09] LABS: Hematocrit 31.9 % (41.0-53.0); Hemoglobin 10.1 g/dL (13.5-17.5)
[2017-12-18] MEDS: MORPHINE SULFATE 4 MG/ML SYR/VIAL IV PRN ×5 (02:13→22:43)
[2017-12-18 05:03] VITALS: BP 119/61
[2017-12-18] MEDS: OXYCODONE PO SCH ×4 (05:48→22:00)
[2017-12-18] MEDS: ACETAMINOPHEN PO SCH ×4 (05:48→22:00)
[2017-12-18 08:00] VITALS: BP 123/69
[2017-12-18 08:07] LABS: Hematocrit 32.4 % (41.0-53.0); Hemoglobin 10.6 g/dL (13.5-17.5)
[2017-12-18] MEDS: CAPECITABINE 500 MG PO SCH ×2 (09:00→18:53)
[2017-12-18] MEDS: MORPHINE SULF 30 mg ER tab PO SCH ×2 (10:08→21:01)
[2017-12-18] MEDS: MEGESTROL ACET 400MG/10ML ORAL SUSP PO SCH ×2 (10:08→21:01)
[2017-12-18] MEDS: PANTOPRAZOLE 40 MG TAB PO SCH ×2 (10:09→21:02)
[2017-12-18] MEDS: cefTRIAXone 1GM/10ml IVPUSH 10 ML IV SCH (10:09)
[2017-12-18] MEDS: Ensure Enlive Strawberry 8oz Bottle PO SCH ×2 (12:01→18:00)
[2017-12-18 13:00] VITALS: BP 104/43
[2017-12-18 17:00] VITALS: BP 106/61
[2017-12-18 17:59] LABS: Hematocrit 31.3 % (41.0-53.0); Hemoglobin 10.2 g/dL (13.5-17.5)
[2017-12-18 22:55] VITALS: BP 109/63
[2017-12-19] MEDS: TEMAZEPAM 15 MG CAP PO PRN ×2 (00:32→22:41)
[2017-12-19] MEDS: metroNIDAZOLE 500MG/100ML 100 ML IV SCH ×3 (00:33→18:02)
[2017-12-19 01:56] VITALS: BP 141/54
[2017-12-19] MEDS: MORPHINE SULFATE 4 MG/ML SYR/VIAL IV PRN ×3 (03:26→14:16)
[2017-12-19 04:54] VITALS: BP 104/61
[2017-12-19] MEDS: OXYCODONE PO SCH ×4 (06:00→22:54)
[2017-12-19] MEDS: ACETAMINOPHEN PO SCH ×4 (06:00→22:54)
[2017-12-19 07:34] LABS: Basophils # (auto) 0 uL; Basophils % (auto) 0.5 % (0.0-2.0); Eosinophils # (auto) 0.1 uL; Eosinophils % (auto) 1.3 % (0.0-7.0); Hematocrit 32.8 % (41.0-53.0); Hemoglobin 10.7 g/dL (13.5-17.5); Lymphocytes # (auto) 0.5 uL; Lymphocytes % (auto) 5.8 % (10.0-50.0); Mean Corpuscular Hemoglobin 28.9 pg (28.0-32.0); Mean Corpuscular Hgb Conc. 32.6 g/dL (32.0-36.0); Mean Corpuscular Volume 88.8 fL (80.0-100.0); Monocytes # (auto) 0.9 uL; Monocytes % (auto) 11.5 % (0.0-12.0); Neutrophils # (auto) 6.5 uL; Neutrophils % (auto) 80.9 % (37.0-80.0); Platelet Count (auto) 350 10^3/uL (140-450); Red Cell Distribution Width 16.9 % (11.8-14.3); White Blood Cell 8.1 10^3/uL (4.4-10.8)
[2017-12-19 07:44] LABS: BUN/Creatinine Ratio 19.7; Calcium 8.3 mg/dL (8.5-10.1); Potassium 3.9 mmol/L (3.5-5.1)
[2017-12-19] MEDS: Ensure Enlive Strawberry 8oz Bottle PO SCH ×3 (08:00→18:02)
[2017-12-19] MEDS: cefTRIAXone 1GM/10ml IVPUSH 10 ML IV SCH (08:55)
[2017-12-19] MEDS: MEGESTROL ACET 400MG/10ML ORAL SUSP PO SCH ×2 (08:56→22:40)
[2017-12-19] MEDS: PANTOPRAZOLE 40 MG TAB PO SCH ×2 (08:56→22:47)
[2017-12-19] MEDS: CAPECITABINE 500 MG PO SCH ×2 (08:56→14:34)
[2017-12-19 09:00] VITALS: BP 125/76
[2017-12-19] MEDS: MORPHINE SULF 30 mg ER tab PO SCH (12:08)
[2017-12-19 13:00] VITALS: BP 112/66
[2017-12-19] MEDS: SODIUM CHLORIDE 0.9% 1,000 ML IV SCH ×2 (15:12→16:20)
[2017-12-19] MEDS ORDERED: LACTULOSE 20Gm/30ML SOLN PO ONE (15:15)
[2017-12-19] MEDS ORDERED: ONDANSETRON ODT 4 MG TAB PO PRN (15:45)
[2017-12-19 17:00] VITALS: BP 120/62
[2017-12-19 21:42] VITALS: BP 104/59
[2017-12-19] MEDS: HYDROmorphone HCL 2 MG/ML VL IV PRN (22:41)
[2017-12-20] MEDS: MORPHINE SULF 15mg ER tab PO SCH ×3 (00:51→21:33)
[2017-12-20] MEDS: metroNIDAZOLE 500MG/100ML 100 ML IV SCH ×2 (00:52→09:44)
[2017-12-20] MEDS: MORPHINE SULF 30 mg ER tab PO SCH ×2 (00:52→09:48)
[2017-12-20] MEDS: SODIUM CHLORIDE 0.9% 1,000 ML IV SCH ×4 (00:52→23:12)
[2017-12-20] MEDS: HYDROmorphone HCL 2 MG/ML VL IV PRN ×4 (02:49→13:04)
[2017-12-20] MEDS: LORazepam 0.5 MG TAB PO PRN ×2 (03:29→15:19)
[2017-12-20 05:37] VITALS: BP 111/65
[2017-12-20] MEDS: ACETAMINOPHEN PO SCH ×2 (06:00→12:00)
[2017-12-20] MEDS: OXYCODONE PO SCH ×2 (06:00→12:00)
[2017-12-20 07:05] LABS: Basophils # (auto) 0 uL; Basophils % (auto) 0.3 % (0.0-2.0); Eosinophils # (auto) 0.1 uL; Eosinophils % (auto) 0.8 % (0.0-7.0); Hematocrit 34.5 % (41.0-53.0); Lymphocytes # (auto) 0.5 uL; Lymphocytes % (auto) 5.6 % (10.0-50.0); Mean Corpuscular Hemoglobin 28.7 pg (28.0-32.0); Mean Corpuscular Volume 89.7 fL (80.0-100.0); Monocytes % (auto) 10.9 % (0.0-12.0); Neutrophils # (auto) 7.4 uL; Neutrophils % (auto) 82.4 % (37.0-80.0); Nucleated Red Blood Cells % 0.1 %; Platelet Count (auto) 398 10^3/uL (140-450); Red Blood Cells 3.85 10^6/uL (4.5-5.90); Red Cell Distribution Width 16.6 % (11.8-14.3)
[2017-12-20 07:24] LABS: Calcium 8.6 mg/dL (8.5-10.1); Potassium 3.7 mmol/L (3.5-5.1)
[2017-12-20 07:26] LABS: BUN/Creatinine Ratio 17.5
[2017-12-20 09:00] VITALS: BP 126/66
[2017-12-20] MEDS: CAPECITABINE 500 MG PO SCH ×2 (09:00→19:30)
[2017-12-20] MEDS: MEGESTROL ACET 400MG/10ML ORAL SUSP PO SCH ×2 (09:44→21:34)
[2017-12-20] MEDS: cefTRIAXone 1GM/10ml IVPUSH 10 ML IV SCH (09:44)
[2017-12-20] MEDS: PANTOPRAZOLE 40 MG TAB PO SCH ×2 (09:45→21:33)
[2017-12-20] MEDS: Ensure Enlive Strawberry 8oz Bottle PO SCH ×3 (09:47→18:40)
[2017-12-20 13:00] VITALS: BP 122/68
[2017-12-20] MEDS: MORPHINE SULFATE 10 MG/5 ML ORAL SOLN PO PRN ×2 (15:46→19:58)
[2017-12-20 17:22] VITALS: BP 147/105
[2017-12-20] MEDS: TEMAZEPAM 15 MG CAP PO PRN (21:33)
[2017-12-20 22:00] VITALS: BP 127/77
[2017-12-21] MEDS: MORPHINE SULFATE 10 MG/5 ML ORAL SOLN PO PRN ×4 (00:57→20:01)
[2017-12-21] MEDS: LORazepam 0.5 MG TAB PO PRN ×2 (02:44→22:54)
[2017-12-21 05:30] VITALS: BP 130/73
[2017-12-21] MEDS: SODIUM CHLORIDE 0.9% 1,000 ML IV SCH ×2 (05:46→18:10)
[2017-12-21 06:53] LABS: Basophils # (auto) 0 uL; Basophils % (auto) 0.3 % (0.0-2.0); Eosinophils # (auto) 0.1 uL; Eosinophils % (auto) 1.2 % (0.0-7.0); Hemoglobin 10.4 g/dL (13.5-17.5); Lymphocytes # (auto) 0.6 uL; Lymphocytes % (auto) 6.2 % (10.0-50.0); Mean Corpuscular Hemoglobin 29.1 pg (28.0-32.0); Mean Corpuscular Hgb Conc. 32.6 g/dL (32.0-36.0); Mean Corpuscular Volume 89.2 fL (80.0-100.0); Monocytes # (auto) 1.2 uL; Neutrophils % (auto) 80.3 % (37.0-80.0); Platelet Count (auto) 362 10^3/uL (140-450); Red Blood Cells 3.59 10^6/uL (4.5-5.90); Red Cell Distribution Width 16.9 % (11.8-14.3)
[2017-12-21 07:09] LABS: BUN/Creatinine Ratio 16.9; Calcium 8.3 mg/dL (8.5-10.1); Potassium 3.9 mmol/L (3.5-5.1)
[2017-12-21 09:00] VITALS: BP 124/79
[2017-12-21] MEDS: CAPECITABINE 500 MG PO SCH ×2 (09:00→18:10)
[2017-12-21] MEDS: MEGESTROL ACET 400MG/10ML ORAL SUSP PO SCH ×4 (10:00→22:25)
[2017-12-21] MEDS: Ensure Enlive Strawberry 8oz Bottle PO SCH ×3 (10:29→18:09)
[2017-12-21] MEDS: MORPHINE SULF 15mg ER tab PO SCH ×2 (10:30→22:21)
[2017-12-21] MEDS: PANTOPRAZOLE 40 MG TAB PO SCH ×2 (10:30→22:20)
[2017-12-21 13:00] VITALS: BP 112/61
[2017-12-21 17:00] VITALS: BP_SYST 112; BP_SYST 117; BP_DIAS 20; BP_DIAS 61
[2017-12-21 21:00] VITALS: BP 111/63
[2017-12-21 22:00] VITALS: BP 111/63
[2017-12-22] MEDS: SODIUM CHLORIDE 0.9% 1,000 ML IV SCH ×2 (00:16→08:50)
[2017-12-22] MEDS: TEMAZEPAM 15 MG CAP PO PRN (00:16)
[2017-12-22] MEDS ORDERED: HYDROmorphone HCL 2 MG/ML VL IV ONE (01:15)
[2017-12-22 04:54] VITALS: BP 131/83
[2017-12-22 08:31] LABS: Basophils # (auto) 0 uL; Basophils % (auto) 0.4 % (0.0-2.0); Eosinophils # (auto) 0.2 uL; Eosinophils % (auto) 1.5 % (0.0-7.0); Hematocrit 31.4 % (41.0-53.0); Hemoglobin 10.2 g/dL (13.5-17.5); Lymphocytes # (auto) 0.6 uL; Lymphocytes % (auto) 6.3 % (10.0-50.0); Mean Corpuscular Hemoglobin 28.9 pg (28.0-32.0); Mean Corpuscular Hgb Conc. 32.5 g/dL (32.0-36.0); Monocytes # (auto) 1.1 uL; Monocytes % (auto) 11.3 % (0.0-12.0); Neutrophils # (auto) 8.1 uL; Neutrophils % (auto) 80.5 % (37.0-80.0); Nucleated Red Blood Cells % 0.1 %; Platelet Count (auto) 392 10^3/uL (140-450); Red Blood Cells 3.53 10^6/uL (4.5-5.90); Red Cell Distribution Width 16.8 % (11.8-14.3); White Blood Cell 10.1 10^3/uL (4.4-10.8)
[2017-12-22] MEDS: CAPECITABINE 500 MG PO SCH (08:49)
[2017-12-22] MEDS: Ensure Enlive Strawberry 8oz Bottle PO SCH ×2 (08:50→12:14)
[2017-12-22] MEDS: PANTOPRAZOLE 40 MG TAB PO SCH (08:51)
[2017-12-22 09:00] VITALS: BP 130/78
[2017-12-22 09:07] LABS: BUN/Creatinine Ratio 22.4; Calcium 8.5 mg/dL (8.5-10.1)
[2017-12-22] MEDS ORDERED: MORPHINE SULF 15mg ER tab PO SCH (10:00)
[2017-12-22] MEDS ORDERED: HYDROmorphone HCL 2 MG TAB PO SCH (12:00)
[2017-12-22 13:00] VITALS: BP 121/69
[2017-12-22 14:46] VITALS: BP 121/69
== END 2017-12-22 16:18 | disposition home or self-care (01) | DRG 240 ==
LOC: EDBD 13:53 → ER 13:53 → EDUNIT# 13:53 → TELE 13:54 → TELE-CENTR 19:40
PROVIDERS: ADMIT Internal Medicine; ATTEND Internal Medicine
DX: C19 Malignant neoplasm of rectosigmoid junction (principal); E44.0 Moderate protein-calorie malnutrition; K62.5 Hemorrhage of anus and rectum; D63.8 Anemia in other chronic diseases classified elsewhere; K21.9 Gastro-esophageal reflux disease without esophagitis; N39.0 Urinary tract infection, site not specified; D62 Acute posthemorrhagic anemia; Z80.1 Family history of malignant neoplasm of trachea, bronchus and lung; Z83.3 Family history of diabetes mellitus; Z85.048 Personal history of other malignant neoplasm of rectum, rectosigmoid junction, and anus; Z68.1 Body mass index [BMI] 19.9 or less, adult; Z92.21 Personal history of antineoplastic chemotherapy; Z92.3 Personal history of irradiation; Z88.5 Allergy status to narcotic agent; Z88.8 Allergy status to other drugs, medicaments and biological substances
CPT/HCPCS: 36415; 74176; 80048; 80053; 81001; 82948; 85014; 85018; 85025; 85045; 85610; 87081; 87086; 93005; 94761; 96372; 96374; 96375; J0696; J2405; J3490; Q0162

== ENCOUNTER 2017-12-27 11:17 | Inpatient (IN) | payer MEDICAID ==
[~2017-12-27] VITALS: Ht 172.7 cm; Wt 54.5 kg
[~2017-12-27 11:17] MED LIST changes: +ONDA4TAB5 PO; -OXYC325T14 PO
[2017-12-27] MEDS ORDERED: SODIUM CHLORIDE 0.9% 500 ML IVB ONE (11:31)
[2017-12-27] MEDS ORDERED: PANTOPRAZOLE 40 MG/10 ML VIAL IV ONE (11:45)
[2017-12-27] MEDS ORDERED: ONDANSETRON HCL 4 MG/2 ML VIAL IV ONE (11:45)
[2017-12-27] MEDS ORDERED: HYDROmorphone HCL 2 MG/ML VL IV ONE (11:45)
[2017-12-27 12:27] LABS: Basophils # (auto) 0.1 uL; Eosinophils # (auto) 0.1 uL; Eosinophils % (auto) 1.2 % (0.0-7.0); Lymphocytes # (auto) 0.7 uL; Lymphocytes % (auto) 6.6 % (10.0-50.0); Neutrophils # (auto) 8.4 uL
[2017-12-27 12:30] LABS: Basophils % (auto) 0.6 % (0.0-2.0); Hematocrit 33.9 % (41.0-53.0); Hemoglobin 10.7 g/dL (13.5-17.5); Mean Corpuscular Hemoglobin 27.4 pg (28.0-32.0); Mean Corpuscular Hgb Conc. 31.4 g/dL (32.0-36.0); Monocytes # (auto) 1.2 uL; Monocytes % (auto) 11.2 % (0.0-12.0); Neutrophils % (auto) 80.4 % (37.0-80.0); Platelet Count (auto) 541 10^3/uL (140-450); Red Blood Cells 3.89 10^6/uL (4.5-5.90); Red Cell Distribution Width 16.8 % (11.8-14.3); White Blood Cell 10.5 10^3/uL (4.4-10.8)
[2017-12-27 12:58] LABS: Albumin 2.8 g/dL (3.4-5.0); BUN/Creatinine Ratio 17.5; Bilirubin, Total 0.2 mg/dL (0.2-1.0); Calcium 8.8 mg/dL (8.5-10.1); Magnesium 2.4 mg/dL (1.6-2.6); Potassium 3.8 mmol/L (3.5-5.1); Total Protein 7.8 g/dL (6.4-8.2)
[2017-12-27] MEDS ORDERED: IOHEXOL 300 MG/ML 100ML BOTTLE IJ ONE (13:09)
[2017-12-27] MEDS ORDERED: NITROGLYCERIN 0.4 MG SL TAB SL PRN (14:45)
[2017-12-27] MEDS ORDERED: ONDANSETRON HCL 4 MG/2 ML VIAL IV PRN (14:45)
[2017-12-27] MEDS ORDERED: MORPHINE SULFATE 4 MG/ML SYR/VIAL IV PRN (14:45)
[2017-12-27] MEDS: SODIUM CHLORIDE 0.9% 1,000 ML IV SCH (15:02)
[2017-12-27 20:48] LABS: Urine Bacteria NONE SEEN /hpf (None Seen); Urine Blood Negative /uL (Negative); Urine Specific Gravity 1.027 (1.001-1.035); Urine WBC <1 /hpf (0 - 3)
[2017-12-27 22:15] VITALS: BP 124/73
[2017-12-27] MEDS: MORPHINE SULFATE 4 MG/ML SYR/VIAL IV PRN (22:16)
[2017-12-27] MEDS: DOCUSATE SOD 100 MG CAP PO SCH (22:16)
[2017-12-27] MEDS ORDERED: OXY20CRT PO (23:22)
[2017-12-27] MEDS ORDERED: MORP60TA25 PO (23:22)
[2017-12-28] MEDS: HYDROcodone-ACET 5/325MG TAB PO PRN ×2 (01:05→19:48)
[2017-12-28] MEDS: SODIUM CHLORIDE 0.9% 1,000 ML IV SCH ×2 (03:40→18:35)
[2017-12-28] MEDS: MORPHINE SULFATE 4 MG/ML SYR/VIAL IV PRN ×2 (03:57→08:28)
[2017-12-28 05:08] VITALS: BP 118/68
[2017-12-28 06:51] LABS: Eosinophils # (auto) 0.2 uL; Lymphocytes # (auto) 0.6 uL
[2017-12-28 06:53] LABS: Basophils # (auto) 0.1 uL; Basophils % (auto) 0.7 % (0.0-2.0); Hematocrit 33.5 % (41.0-53.0); Lymphocytes % (auto) 7.5 % (10.0-50.0); Mean Corpuscular Hemoglobin 28.8 pg (28.0-32.0); Mean Corpuscular Volume 87.4 fL (80.0-100.0); Monocytes % (auto) 11.7 % (0.0-12.0); Neutrophils # (auto) 6.4 uL; Neutrophils % (auto) 78.1 % (37.0-80.0); Nucleated Red Blood Cells % 0.1 %; Platelet Count (auto) 483 10^3/uL (140-450); Red Blood Cells 3.83 10^6/uL (4.5-5.90); Red Cell Distribution Width 16.9 % (11.8-14.3); White Blood Cell 8.2 10^3/uL (4.4-10.8)
[2017-12-28 06:58] LABS: INR 0.99 (0.9-1.15); Partial Thromboplastin Time 29.5 sec (23.78-33.04); Prothrombin Time 10.6 sec (9.27-12.13)
[2017-12-28 09:00] VITALS: BP 125/78
[2017-12-28] MEDS ORDERED: OXYCODONE HCL 5MG TAB PO STA (09:13)
[2017-12-28] MEDS ORDERED: TEMAZEPAM 15 MG CAP PO PRN (09:15)
[2017-12-28] MEDS: PANTOPRAZOLE 40 MG TAB PO SCH (09:58)
[2017-12-28] MEDS: MORPHINE SULF 30 mg ER tab PO SCH ×2 (09:58→21:51)
[2017-12-28] MEDS: DOCUSATE SOD 100 MG CAP PO SCH ×2 (09:59→21:51)
[2017-12-28 13:00] VITALS: BP 128/72
[2017-12-28] MEDS: OXYCODONE HCL 5MG TAB PO PRN ×3 (16:18→22:48)
[2017-12-28 17:00] VITALS: BP 132/79
[2017-12-28 21:58] VITALS: BP 123/76
[2017-12-29 05:17] VITALS: BP 138/78
[2017-12-29] MEDS: OXYCODONE HCL 5MG TAB PO PRN (05:35)
[2017-12-29] MEDS: SODIUM CHLORIDE 0.9% 1,000 ML IV SCH (06:39)
[2017-12-29 06:42] LABS: Basophils # (auto) 0 uL; Eosinophils # (auto) 0.2 uL; Lymphocytes # (auto) 0.7 uL; Monocytes # (auto) 0.9 uL; Red Cell Distribution Width 16.8 % (11.8-14.3); White Blood Cell 7.8 10^3/uL (4.4-10.8)
[2017-12-29 06:45] LABS: Basophils % (auto) 0.5 % (0.0-2.0); Eosinophils % (auto) 2.6 % (0.0-7.0); Hematocrit 32.1 % (41.0-53.0); Hemoglobin 10.5 g/dL (13.5-17.5); Lymphocytes % (auto) 8.6 % (10.0-50.0); Mean Corpuscular Hemoglobin 28.6 pg (28.0-32.0); Mean Corpuscular Hgb Conc. 32.7 g/dL (32.0-36.0); Mean Corpuscular Volume 87.6 fL (80.0-100.0); Monocytes % (auto) 11.9 % (0.0-12.0); Neutrophils % (auto) 76.4 % (37.0-80.0); Platelet Count (auto) 445 10^3/uL (140-450); Red Blood Cells 3.66 10^6/uL (4.5-5.90)
[2017-12-29 07:00] LABS: Calcium 8.3 mg/dL (8.5-10.1); Potassium 3.6 mmol/L (3.5-5.1)
[2017-12-29 09:00] VITALS: BP 136/76
[2017-12-29] MEDS: DOCUSATE SOD 100 MG CAP PO SCH (09:27)
[2017-12-29] MEDS: MORPHINE SULF 30 mg ER tab PO SCH (09:28)
[2017-12-29] MEDS: PANTOPRAZOLE 40 MG TAB PO SCH (09:28)
[2017-12-29 13:00] VITALS: BP 140/74
== END 2017-12-29 15:23 | disposition home or self-care (01) | DRG 240 ==
LOC: EDBD 11:17 → ER 11:17 → EDUNIT# 11:17 → TELE 11:18 → TELE-CENTR 21:55
PROVIDERS: ADMIT Internal Medicine; ATTEND Internal Medicine
DX: C20 Malignant neoplasm of rectum (principal); E44.0 Moderate protein-calorie malnutrition; C19 Malignant neoplasm of rectosigmoid junction; E88.09 Other disorders of plasma-protein metabolism, not elsewhere classified; D62 Acute posthemorrhagic anemia; D63.8 Anemia in other chronic diseases classified elsewhere; F17.210 Nicotine dependence, cigarettes, uncomplicated; G89.29 Other chronic pain; K62.5 Hemorrhage of anus and rectum; K21.9 Gastro-esophageal reflux disease without esophagitis; M54.9 Dorsalgia, unspecified; Z83.3 Family history of diabetes mellitus; Z85.048 Personal history of other malignant neoplasm of rectum, rectosigmoid junction, and anus; Z68.1 Body mass index [BMI] 19.9 or less, adult; Z92.21 Personal history of antineoplastic chemotherapy; Z88.5 Allergy status to narcotic agent; Z88.8 Allergy status to other drugs, medicaments and biological substances; Z92.3 Personal history of irradiation
CPT/HCPCS: 36415; 74177; 80048; 80053; 81001; 82150; 83690; 83735; 85025; 85610; 85730; 86850; 86900; 86901; 87081; 93005; 96361; 96374; 96375; C9113; J2405

== ENCOUNTER 2018-01-04 14:08 | Inpatient (IN) | payer MEDICAID ==
[~2018-01-04] VITALS: Ht 172.7 cm; Wt 63.5 kg
[~2018-01-04 14:08] MED LIST changes: -CAPE1TAB11 PO; +MORP60TA25 PO; +OXY20CRT PO
[2018-01-04] MEDS ORDERED: SODIUM CHLORIDE 0.9% 500 ML IVB ONE (14:18)
[2018-01-04] MEDS ORDERED: ONDANSETRON HCL 4 MG/2 ML VIAL IV ONE (14:30)
[2018-01-04] MEDS ORDERED: HYDROmorphone HCL 2 MG/ML VL IV ONE (14:30)
[2018-01-04 15:57] LABS: Basophils # (auto) 0.1 uL; Eosinophils # (auto) 0.2 uL; Lymphocytes # (auto) 0.7 uL; Neutrophils # (auto) 6.5 uL; White Blood Cell 8.5 10^3/uL (4.4-10.8)
[2018-01-04 15:59] LABS: Basophils % (auto) 0.7 % (0.0-2.0); Eosinophils % (auto) 2.3 % (0.0-7.0); Hematocrit 29.6 % (41.0-53.0); Lymphocytes % (auto) 8.1 % (10.0-50.0); Mean Corpuscular Hemoglobin 29.1 pg (28.0-32.0); Mean Corpuscular Hgb Conc. 33.6 g/dL (32.0-36.0); Mean Corpuscular Volume 86.6 fL (80.0-100.0); Monocytes % (auto) 12.2 % (0.0-12.0); Neutrophils % (auto) 76.7 % (37.0-80.0); Platelet Count (auto) 444 10^3/uL (140-450); Red Blood Cells 3.42 10^6/uL (4.5-5.90)
[2018-01-04 16:13] LABS: Albumin 2.8 g/dL (3.4-5.0); BUN/Creatinine Ratio 14.6; Bilirubin, Total 0.1 mg/dL (0.2-1.0); Calcium 8.3 mg/dL (8.5-10.1); Potassium 3.9 mmol/L (3.5-5.1)
[2018-01-04] MEDS ORDERED: LEVOFLOXACIN 500MG 100 ML IV ONE (17:00)
[2018-01-04] MEDS: SODIUM CHLORIDE 0.9% 1,000 ML IV SCH (17:03)
[2018-01-04] MEDS: PANTOPRAZOLE 40 MG TAB PO SCH (17:06)
[2018-01-04] MEDS: HYDROcodone-ACET 5/325MG TAB PO PRN (17:38)
[2018-01-04 19:21] LABS: Urine Bacteria NONE SEEN /hpf (None Seen); Urine Blood Negative /uL (Negative); Urine Specific Gravity 1.027 (1.001-1.035); Urine WBC 1 /hpf (0 - 3)
[2018-01-04] MEDS: metroNIDAZOLE 500MG/100ML 100 ML IV SCH (19:40)
[2018-01-04] MEDS: HYDROmorphone HCL 2 MG/ML VL IV PRN ×2 (19:40→22:27)
[2018-01-04 21:25] VITALS: BP 119/71
[2018-01-04 22:23] VITALS: BP 119/71
[2018-01-05] MEDS: metroNIDAZOLE 500MG/100ML 100 ML IV SCH ×3 (01:25→18:01)
[2018-01-05] MEDS: SODIUM CHLORIDE 0.9% 1,000 ML IV SCH ×3 (02:57→23:00)
[2018-01-05] MEDS: HYDROmorphone HCL 2 MG/ML VL IV PRN ×5 (03:46→20:28)
[2018-01-05 05:22] VITALS: BP 129/70
[2018-01-05 06:12] LABS: Basophils # (auto) 0.1 uL; Basophils % (auto) 0.7 % (0.0-2.0); Hemoglobin 10.6 g/dL (13.5-17.5); Mean Corpuscular Hemoglobin 28.6 pg (28.0-32.0); Nucleated Red Blood Cells % 0.1 %; Red Blood Cells 3.71 10^6/uL (4.5-5.90)
[2018-01-05 06:14] LABS: Eosinophils # (auto) 0.1 uL; Eosinophils % (auto) 1.8 % (0.0-7.0); Hematocrit 32.6 % (41.0-53.0); Lymphocytes # (auto) 0.6 uL; Lymphocytes % (auto) 7.2 % (10.0-50.0); Mean Corpuscular Hgb Conc. 32.5 g/dL (32.0-36.0); Monocytes # (auto) 0.8 uL; Monocytes % (auto) 9.3 % (0.0-12.0); Neutrophils # (auto) 6.5 uL; Platelet Count (auto) 451 10^3/uL (140-450); Red Cell Distribution Width 17.2 % (11.8-14.3); White Blood Cell 8.1 10^3/uL (4.4-10.8)
[2018-01-05 06:26] LABS: BUN/Creatinine Ratio 11.5; Calcium 8.1 mg/dL (8.5-10.1); Potassium 3.7 mmol/L (3.5-5.1)
[2018-01-05 08:34] VITALS: BP 146/72
[2018-01-05] MEDS: PANTOPRAZOLE 40 MG TAB PO SCH (11:28)
[2018-01-05 12:03] VITALS: BP 120/70
[2018-01-05] MEDS: LEVOFLOXACIN 500MG 100 ML IV SCH (13:30)
[2018-01-05] MEDS ORDERED: LACTULOSE 20Gm/30ML SOLN PO SCH (15:00)
[2018-01-05 17:22] VITALS: BP 119/70
[2018-01-05] MEDS ORDERED: Ensure Enlive Strawberry 8oz Bottle PO SCH (18:00)
[2018-01-05] MEDS: HYDROcodone-ACET 5/325MG TAB PO PRN (18:01)
[2018-01-05 21:49] VITALS: BP 99/55
[2018-01-05] MEDS ORDERED: LACTULOSE 20Gm/30ML SOLN PO PRN (22:00)
[2018-01-06] MEDS: HYDROcodone-ACET 5/325MG TAB PO PRN (00:02)
[2018-01-06] MEDS: SODIUM CHLORIDE 0.9% 1,000 ML IV SCH (00:25)
[2018-01-06] MEDS: metroNIDAZOLE 500MG/100ML 100 ML IV SCH ×2 (01:35→09:34)
[2018-01-06] MEDS: HYDROmorphone HCL 2 MG/ML VL IV PRN ×3 (01:41→09:35)
[2018-01-06 04:38] VITALS: BP 133/81
[2018-01-06 08:05] LABS: Basophils # (auto) 0.1 uL; Basophils % (auto) 0.7 % (0.0-2.0); Eosinophils # (auto) 0.1 uL; Eosinophils % (auto) 1.3 % (0.0-7.0); Hematocrit 31.5 % (41.0-53.0); Hemoglobin 10.2 g/dL (13.5-17.5); Lymphocytes # (auto) 0.6 uL; Lymphocytes % (auto) 6.9 % (10.0-50.0); Mean Corpuscular Hgb Conc. 32.3 g/dL (32.0-36.0); Mean Corpuscular Volume 86.6 fL (80.0-100.0); Monocytes # (auto) 0.8 uL; Monocytes % (auto) 9.3 % (0.0-12.0); Neutrophils # (auto) 6.8 uL; Neutrophils % (auto) 81.8 % (37.0-80.0); Platelet Count (auto) 432 10^3/uL (140-450); Red Blood Cells 3.64 10^6/uL (4.5-5.90); White Blood Cell 8.3 10^3/uL (4.4-10.8)
[2018-01-06 08:18] LABS: BUN/Creatinine Ratio 12.2; Calcium 8.6 mg/dL (8.5-10.1); Potassium 3.8 mmol/L (3.5-5.1)
[2018-01-06 09:00] VITALS: BP 137/75
[2018-01-06] MEDS: PANTOPRAZOLE 40 MG TAB PO SCH (09:49)
[2018-01-06] MEDS: LEVOFLOXACIN 500MG 100 ML IV SCH (11:01)
[2018-01-06] MEDS ORDERED: HYDROmorphone HCL 2 MG/ML VL IV ONE (12:45)
[2018-01-06 13:00] VITALS: BP 122/74
[2018-01-06 13:26] VITALS: BP 122/74
== END 2018-01-06 14:20 | disposition home or self-care (01) | DRG 240 ==
LOC: EDBD 14:08 → ER 14:14 → OVERFLOW 14:15 → EAST 21:29
PROVIDERS: ADMIT Internal Medicine; ATTEND Internal Medicine
DX: C20 Malignant neoplasm of rectum (principal); E44.0 Moderate protein-calorie malnutrition; K21.9 Gastro-esophageal reflux disease without esophagitis; F17.210 Nicotine dependence, cigarettes, uncomplicated; Z60.2 Problems related to living alone; G89.29 Other chronic pain; Z68.21 Body mass index [BMI] 21.0-21.9, adult; Z88.5 Allergy status to narcotic agent; Z88.8 Allergy status to other drugs, medicaments and biological substances; Z83.3 Family history of diabetes mellitus; Z85.048 Personal history of other malignant neoplasm of rectum, rectosigmoid junction, and anus
CPT/HCPCS: 36415; 74018; 80048; 80053; 81001; 83690; 85025; 86850; 86900; 86901; 87081; 94761; 96361; 96365; 96366; 96375; J1956; J2405; J3490

== ENCOUNTER 2018-01-12 19:15 | Emergency (ER) | payer MEDICAID ==
[~2018-01-12] VITALS: Ht 167.6 cm; Wt 59.0 kg
[2018-01-12] MEDS ORDERED: MORPHINE SULFATE 4 MG/ML SYR/VIAL IV ONE (20:00)
[2018-01-12] MEDS ORDERED: ONDANSETRON HCL 4 MG/2 ML VIAL IV ONE ×2 (20:00→21:30)
[2018-01-12 20:36] LABS: Basophils # (auto) 0 uL; Basophils % (auto) 0.5 % (0.0-2.0); Eosinophils # (auto) 0.1 uL; Eosinophils % (auto) 1.5 % (0.0-7.0); Hematocrit 31.7 % (41.0-53.0); Hemoglobin 10.5 g/dL (13.5-17.5); Lymphocytes # (auto) 0.8 uL; Lymphocytes % (auto) 9.3 % (10.0-50.0); Monocytes # (auto) 1.1 uL; Monocytes % (auto) 12.4 % (0.0-12.0); Neutrophils # (auto) 6.9 uL; Neutrophils % (auto) 76.3 % (37.0-80.0); Platelet Count (auto) 446 10^3/uL (140-450); Red Blood Cells 3.73 10^6/uL (4.5-5.90); Red Cell Distribution Width 17.1 % (11.8-14.3)
[2018-01-12 20:51] LABS: Albumin 2.7 g/dL (3.4-5.0); Calcium 8.3 mg/dL (8.5-10.1); Potassium 4.1 mmol/L (3.5-5.1)
[2018-01-12 20:54] LABS: BUN/Creatinine Ratio 17.3; Bilirubin, Total 0.3 mg/dL (0.2-1.0); Total Protein 7.3 g/dL (6.4-8.2)
[2018-01-12] MEDS ORDERED: HYDROmorphone HCL 2 MG/ML VL IV ONE (21:30)
[2018-01-12] MEDS ORDERED: SODIUM CHLORIDE 0.9% 1,000 ML IV ONE (21:30)
[2018-01-12 21:42] LABS: Urine Bacteria NONE SEEN /hpf (None Seen); Urine Blood Negative /uL (Negative); Urine Specific Gravity 1.006 (1.001-1.035); Urine WBC 1 /hpf (0 - 3)
[2018-01-13] MEDS ORDERED: MORPHINE SULFATE 4 MG/ML SYR/VIAL IV ONE (02:15)
[2018-01-13] MEDS ORDERED: ONDANSETRON HCL 4 MG/2 ML VIAL IV ONE (02:15)
[2018-01-13 03:42] VITALS: BP 107/54
[2018-01-13] MEDS ORDERED: HYDROcodone-ACET 10/325MG TAB PO ONE (05:00)
== END 2018-01-13 06:28 | disposition home or self-care (01) ==
LOC: ER 19:15 → EDBD 19:15 → EDUNIT# 19:15 → ER 01-13 06:28
DX: K62.7 Radiation proctitis (principal); K56.41 Fecal impaction; K62.5 Hemorrhage of anus and rectum; K21.9 Gastro-esophageal reflux disease without esophagitis; F17.210 Nicotine dependence, cigarettes, uncomplicated; Z88.8 Allergy status to other drugs, medicaments and biological substances; Z88.6 Allergy status to analgesic agent; Z79.899 Other long term (current) drug therapy; Z85.048 Personal history of other malignant neoplasm of rectum, rectosigmoid junction, and anus
CPT/HCPCS: 36415; 74176; 80053; 81001; 82150; 83690; 85025; 96361; 96374; 96375; 96376; 99285; J1170; J2270; J2405; J7030

== ENCOUNTER 2018-01-16 12:05 | Emergency (ER) | payer MEDICAID ==
[~2018-01-16] VITALS: Ht 30.5 cm; Wt 0.5 kg
[2018-01-16] MEDS ORDERED: SODIUM CHLORIDE 0.9% 1,000 ML IV ONE (12:32)
[2018-01-16] MEDS ORDERED: IOHEXOL 300 MG/ML 100ML BOTTLE IJ ONE (12:37)
[2018-01-16] MEDS ORDERED: HYDROmorphone HCL 2 MG/ML VL IV ONE (12:45)
[2018-01-16] MEDS ORDERED: PROMETHAZINE HCL 25 MG/ML 1ML IV PRN (12:45)
[2018-01-16 12:58] LABS: Basophils # (auto) 0.1 uL; Eosinophils # (auto) 0.1 uL; Eosinophils % (auto) 1.1 % (0.0-7.0); Lymphocytes # (auto) 0.9 uL; Nucleated Red Blood Cells % 0.1 %; Red Cell Distribution Width 17.7 % (11.8-14.3)
[2018-01-16 13:00] LABS: Basophils % (auto) 0.6 % (0.0-2.0); Hematocrit 32.7 % (41.0-53.0); Hemoglobin 10.6 g/dL (13.5-17.5); Lymphocytes % (auto) 7.9 % (10.0-50.0); Mean Corpuscular Hemoglobin 27.4 pg (28.0-32.0); Mean Corpuscular Hgb Conc. 32.5 g/dL (32.0-36.0); Mean Corpuscular Volume 84.4 fL (80.0-100.0); Monocytes # (auto) 1.1 uL; Monocytes % (auto) 10.1 % (0.0-12.0); Neutrophils % (auto) 80.3 % (37.0-80.0); Platelet Count (auto) 511 10^3/uL (140-450); Red Blood Cells 3.88 10^6/uL (4.5-5.90); White Blood Cell 11.2 10^3/uL (4.4-10.8)
[2018-01-16 13:17] LABS: Alanine Aminotransferase 20 U/L (16-61); Albumin 2.9 g/dL (3.4-5.0); Anion Gap 8 (5-15); Aspartate Aminotransferase 16 U/L (15-37); BUN/Creatinine Ratio 15.7; Blood Urea Nitrogen 13 mg/dL (7-18); Calcium 8.3 mg/dL (8.5-10.1); Carbon Dioxide 25 mmol/L (21-32); Chloride 105 mmol/L (98-107); GFR African American 121 mL/min; GFR Non-African American 100 mL/min; Glucose 130 mg/dL (74-106); Lipase 189 U/L (73-393); Magnesium 2.4 mg/dL (1.6-2.6); Potassium 3.8 mmol/L (3.5-5.1); Sodium 138 mmol/L (136-145)
[2018-01-16 13:23] LABS: Alkaline Phosphatase 103 U/L (45-117); Bilirubin, Total 0.2 mg/dL (0.2-1.0); Total Protein 7.6 g/dL (6.4-8.2)
[2018-01-16] MEDS ORDERED: MILK OF MAGNESIA 30ML SUSP PO ONE (14:30)
[2018-01-16 16:24] LABS: Urine Bacteria NONE SEEN /hpf (None Seen); Urine Blood Negative /uL (Negative); Urine Specific Gravity 1.048 (1.001-1.035); Urine WBC <1 /hpf (0 - 3)
[2018-01-16] MEDS ORDERED: MORPHINE SULFATE 4 MG/ML SYR/VIAL IV ONE ×2 (17:00)
[2018-01-16 17:31] VITALS: BP 120/74
== END 2018-01-16 17:33 | disposition home or self-care (01) ==
LOC: ER 12:05 → EDBD 12:05 → ER 17:33
DX: K59.01 Slow transit constipation (principal); G89.29 Other chronic pain; M54.5 Low back pain; C18.9 Malignant neoplasm of colon, unspecified; F17.210 Nicotine dependence, cigarettes, uncomplicated; Z88.8 Allergy status to other drugs, medicaments and biological substances
CPT/HCPCS: 36415; 71046; 74177; 80053; 81001; 83690; 83735; 84484; 85025; 96361; 96374; 96375; 99285; J1170; J2270; J2550; J7030; Q9967

== ENCOUNTER 2018-01-31 04:26 | Emergency (ER) | payer MEDICAID ==
[~2018-01-31] VITALS: Ht 172.7 cm; Wt 53.5 kg
[2018-01-31] MEDS ORDERED: SODIUM CHLORIDE 0.9% 1,000 ML IV ONE (06:58)
[2018-01-31] MEDS ORDERED: PIPERACILLIN-TAZOB 3.375GM 100 ML IV ONE (07:00)
[2018-01-31 07:13] LABS: Lymphocytes # (auto) 0.6 uL; Monocytes # (auto) 0.8 uL
[2018-01-31] MEDS ORDERED: MORPHINE SULFATE 4 MG/ML SYR/VIAL IV ONE (07:15)
[2018-01-31] MEDS ORDERED: ONDANSETRON HCL 4 MG/2 ML VIAL IV ONE (07:15)
[2018-01-31 07:16] LABS: Basophils # (auto) 0 uL; Basophils % (auto) 0.5 % (0.0-2.0); Eosinophils # (auto) 0.1 uL; Eosinophils % (auto) 0.6 % (0.0-7.0); Hematocrit 37.3 % (41.0-53.0); Hemoglobin 11.9 g/dL (13.5-17.5); Lymphocytes % (auto) 7.5 % (10.0-50.0); Mean Corpuscular Hgb Conc. 31.8 g/dL (32.0-36.0); Mean Corpuscular Volume 84.7 fL (80.0-100.0); Monocytes % (auto) 9.1 % (0.0-12.0); Neutrophils # (auto) 6.9 uL; Neutrophils % (auto) 82.3 % (37.0-80.0); Platelet Count (auto) 524 10^3/uL (140-450); Red Cell Distribution Width 18.8 % (11.8-14.3); White Blood Cell 8.4 10^3/uL (4.4-10.8)
[2018-01-31 07:29] LABS: Alanine Aminotransferase 19 U/L (16-61); Albumin 3.1 g/dL (3.4-5.0); Amylase 48 U/L (25-115); Anion Gap 6 (5-15); Aspartate Aminotransferase 21 U/L (15-37); Blood Urea Nitrogen 12 mg/dL (7-18); Calcium 9.2 mg/dL (8.5-10.1); Carbon Dioxide 27 mmol/L (21-32); Chloride 105 mmol/L (98-107); GFR African American 107 mL/min; GFR Non-African American 89 mL/min; Glucose 106 mg/dL (74-106); Lipase 105 U/L (73-393); Potassium 3.7 mmol/L (3.5-5.1); Sodium 138 mmol/L (136-145)
[2018-01-31 07:35] LABS: Alkaline Phosphatase 110 U/L (45-117); Bilirubin, Total 0.4 mg/dL (0.2-1.0); Total Protein 8.2 g/dL (6.4-8.2)
[2018-01-31 09:43] LABS: Urine Amorphous Crystal FEW /hpf (None Seen); Urine Bacteria FEW /hpf (None Seen); Urine Blood Negative /uL (Negative); Urine Mucus FEW (None Seen); Urine Specific Gravity 1.025 (1.001-1.035); Urine WBC 2 /hpf (0 - 3)
[2018-01-31 10:37] VITALS: BP 115/75
[2018-01-31] MEDS ORDERED: HYDROcodone-ACET 10/325MG TAB PO ONE (10:45)
== END 2018-01-31 10:55 | disposition home or self-care (01) ==
LOC: ER 04:26 → EDBD 04:26 → ER 10:55
DX: K92.1 Melena (principal); K62.89 Other specified diseases of anus and rectum; K21.9 Gastro-esophageal reflux disease without esophagitis; F17.210 Nicotine dependence, cigarettes, uncomplicated; Z85.038 Personal history of other malignant neoplasm of large intestine; Z88.6 Allergy status to analgesic agent
CPT/HCPCS: 36415; 74176; 80053; 81001; 82150; 83690; 84484; 85025; 96365; 96366; 96375; 99285; J2270; J2405; J2543; J7030

== ENCOUNTER 2018-02-13 14:51 | Emergency (ER) | payer MEDICAID ==
[~2018-02-13] VITALS: Ht 167.6 cm; Wt 54.4 kg
[2018-02-13 14:53] VITALS: BP 107/57
== END 2018-02-13 17:00 | disposition left against medical advice (07) ==
LOC: EDBD 14:51 → ER 14:54
DX: K62.5 Hemorrhage of anus and rectum (principal); R10.9 Unspecified abdominal pain; Z53.21 Procedure and treatment not carried out due to patient leaving prior to being seen by health care provider

== ENCOUNTER 2018-02-18 11:02 | Emergency (ER) | payer MEDICAID ==
[~2018-02-18] VITALS: Ht 167.6 cm; Wt 59.0 kg
[2018-02-18] MEDS ORDERED: SODIUM CHLORIDE 0.9% 1,000 ML IV ONE (11:11)
[2018-02-18 11:30] VITALS: BP 124/73
[2018-02-18] MEDS ORDERED: ONDANSETRON HCL 4 MG/2 ML VIAL IV ONE (11:30)
[2018-02-18] MEDS ORDERED: MORPHINE SULFATE 4 MG/ML SYR/VIAL IV ONE (11:30)
[2018-02-18 11:55] LABS: Hemoglobin 10.3 g/dL (13.5-17.5); Lymphocytes # (auto) 0.9 uL; Neutrophils # (auto) 5.8 uL; Nucleated Red Blood Cells % 0.1 %
[2018-02-18 11:57] LABS: Basophils # (auto) 0 uL; Basophils % (auto) 0.6 % (0.0-2.0); Eosinophils # (auto) 0.3 uL; Eosinophils % (auto) 3.2 % (0.0-7.0); Hematocrit 32.5 % (41.0-53.0); Lymphocytes % (auto) 11.5 % (10.0-50.0); Mean Corpuscular Hemoglobin 27.1 pg (28.0-32.0); Mean Corpuscular Hgb Conc. 31.8 g/dL (32.0-36.0); Monocytes # (auto) 0.9 uL; Monocytes % (auto) 10.9 % (0.0-12.0); Neutrophils % (auto) 73.8 % (37.0-80.0); Platelet Count (auto) 386 10^3/uL (140-450); Red Blood Cells 3.82 10^6/uL (4.5-5.90); White Blood Cell 7.8 10^3/uL (4.4-10.8)
[2018-02-18 12:09] LABS: Alanine Aminotransferase 25 U/L (16-61); Albumin 2.9 g/dL (3.4-5.0); Anion Gap 6 (5-15); Aspartate Aminotransferase 18 U/L (15-37); Blood Urea Nitrogen 11 mg/dL (7-18); Calcium 8.6 mg/dL (8.5-10.1); Carbon Dioxide 27 mmol/L (21-32); Chloride 105 mmol/L (98-107); Glucose 115 mg/dL (74-106); Sodium 138 mmol/L (136-145)
[2018-02-18 12:14] LABS: Alkaline Phosphatase 98 U/L (45-117); BUN/Creatinine Ratio 14.1; Bilirubin, Total 0.1 mg/dL (0.2-1.0); GFR African American 130 mL/min; GFR Non-African American 107 mL/min; Total Protein 7.2 g/dL (6.4-8.2)
[2018-02-18 12:17] LABS: INR 0.93 (0.9-1.15); Partial Thromboplastin Time 28.6 sec (23.78-33.04)
== END 2018-02-18 13:09 | disposition home or self-care (01) ==
LOC: EDBD 11:02 → ER 11:02
DX: K92.1 Melena (principal); K59.00 Constipation, unspecified; R11.2 Nausea with vomiting, unspecified; K21.9 Gastro-esophageal reflux disease without esophagitis; I10 Essential (primary) hypertension; F17.210 Nicotine dependence, cigarettes, uncomplicated; Z88.8 Allergy status to other drugs, medicaments and biological substances; Z88.6 Allergy status to analgesic agent; Z79.899 Other long term (current) drug therapy
CPT/HCPCS: 36415; 71045; 74176; 80053; 83880; 84484; 85025; 85610; 85730; 96361; 96374; 96375; 99285; J2270; J2405; J7030

== ENCOUNTER 2018-02-20 09:25 | Emergency (ER) | payer MEDICAID ==
[~2018-02-20] VITALS: Ht 167.6 cm; Wt 59.0 kg
[2018-02-20 10:04] LABS: Basophils # (auto) 0.1 uL; Eosinophils # (auto) 0.2 uL; Neutrophils # (auto) 6.6 uL; White Blood Cell 8.7 10^3/uL (4.4-10.8)
[2018-02-20 10:06] LABS: Basophils % (auto) 0.6 % (0.0-2.0); Eosinophils % (auto) 2.6 % (0.0-7.0); Hematocrit 34.6 % (41.0-53.0); Hemoglobin 11.2 g/dL (13.5-17.5); Lymphocytes # (auto) 0.9 uL; Mean Corpuscular Hemoglobin 27.3 pg (28.0-32.0); Mean Corpuscular Hgb Conc. 32.3 g/dL (32.0-36.0); Mean Corpuscular Volume 84.7 fL (80.0-100.0); Monocytes # (auto) 0.9 uL; Monocytes % (auto) 10.9 % (0.0-12.0); Neutrophils % (auto) 75.9 % (37.0-80.0); Platelet Count (auto) 478 10^3/uL (140-450); Red Blood Cells 4.09 10^6/uL (4.5-5.90); Red Cell Distribution Width 20.1 % (11.8-14.3)
[2018-02-20 10:07] LABS: Urine Bacteria FEW /hpf (None Seen); Urine Blood Negative /uL (Negative); Urine Specific Gravity 1.012 (1.001-1.035); Urine WBC <1 /hpf (0 - 3)
[2018-02-20 10:20] LABS: Alanine Aminotransferase 38 U/L (16-61); Albumin 3.4 g/dL (3.4-5.0); Anion Gap 6 (5-15); Blood Urea Nitrogen 12 mg/dL (7-18); Calcium 9.2 mg/dL (8.5-10.1); Carbon Dioxide 28 mmol/L (21-32); Chloride 102 mmol/L (98-107); Glucose 97 mg/dL (74-106); Magnesium 2.5 mg/dL (1.6-2.6); Potassium 3.8 mmol/L (3.5-5.1); Sodium 136 mmol/L (136-145)
[2018-02-20 10:26] LABS: Alkaline Phosphatase 111 U/L (45-117); Aspartate Aminotransferase 34 U/L (15-37); BUN/Creatinine Ratio 14.8; Bilirubin, Total 0.3 mg/dL (0.2-1.0); GFR African American 124 mL/min; GFR Non-African American 103 mL/min
[2018-02-20] MEDS ORDERED: SODIUM CHLORIDE 0.9% 1,000 ML IV ONE (11:31)
[2018-02-20] MEDS ORDERED: MORPHINE SULFATE 4 MG/ML SYR/VIAL IV ONE (11:45)
[2018-02-20] MEDS ORDERED: PROMETHAZINE HCL 25 MG/ML 1ML IV PRN (11:45)
[2018-02-20 13:10] VITALS: BP 138/79
== END 2018-02-20 13:31 | disposition home or self-care (01) ==
LOC: EDBD 09:25 → ER 09:27
DX: K64.4 Residual hemorrhoidal skin tags (principal); K92.1 Melena; K60.2 Anal fissure, unspecified; N39.0 Urinary tract infection, site not specified; K21.9 Gastro-esophageal reflux disease without esophagitis; I10 Essential (primary) hypertension; Z88.8 Allergy status to other drugs, medicaments and biological substances; Z88.6 Allergy status to analgesic agent; Z79.899 Other long term (current) drug therapy; Z87.891 Personal history of nicotine dependence; Z85.038 Personal history of other malignant neoplasm of large intestine
CPT/HCPCS: 36415; 80053; 81001; 83735; 84484; 85025; 93005; 96361; 96374; 96375; 99285; J2270; J2550; J7030

== ENCOUNTER 2018-02-28 01:22 | Emergency (ER) | payer MEDICAID ==
[~2018-02-28] VITALS: Ht 172.7 cm; Wt 54.9 kg
[2018-02-28] MEDS ORDERED: ONDANSETRON HCL 4 MG/2 ML VIAL IM ONE (02:00)
[2018-02-28] MEDS ORDERED: MAGNESIUM CITRATE SOLUTION 300 ML BTL PO ONE (02:00)
[2018-02-28] MEDS ORDERED: MORPHINE SULFATE 4 MG/ML SYR/VIAL IV ONE (02:00)
[2018-02-28 05:11] VITALS: BP 114/67
== END 2018-02-28 04:47 | disposition home or self-care (01) ==
LOC: EDBD 01:22 → ER 01:27
DX: N40.0 Benign prostatic hyperplasia without lower urinary tract symptoms (principal); K21.9 Gastro-esophageal reflux disease without esophagitis; I10 Essential (primary) hypertension; Z88.6 Allergy status to analgesic agent; Z88.8 Allergy status to other drugs, medicaments and biological substances; Z79.899 Other long term (current) drug therapy; Z87.891 Personal history of nicotine dependence; Z85.048 Personal history of other malignant neoplasm of rectum, rectosigmoid junction, and anus
CPT/HCPCS: 96372; 96374; 99283; J2270; J2405

== ENCOUNTER 2018-03-03 20:44 | Emergency (ER) | payer MEDICAID ==
[~2018-03-03] VITALS: Ht 172.7 cm; Wt 53.5 kg
[2018-03-03] MEDS ORDERED: SODIUM CHLORIDE 0.9% 1,000 ML IV ONE (21:55)
[2018-03-03] MEDS ORDERED: HYDROmorphone HCL 2 MG/ML VL IV ONE (22:00)
[2018-03-03 22:47] LABS: Basophils # (auto) 0.1 uL; Hemoglobin 12.2 g/dL (13.5-17.5)
[2018-03-03 22:48] LABS: Eosinophils # (auto) 0.3 uL; Eosinophils % (auto) 3.2 % (0.0-7.0); Hematocrit 38.1 % (41.0-53.0); Lymphocytes % (auto) 11.8 % (10.0-50.0); Mean Corpuscular Hgb Conc. 32.1 g/dL (32.0-36.0); Mean Corpuscular Volume 84.2 fL (80.0-100.0); Monocytes % (auto) 11.6 % (0.0-12.0); Neutrophils # (auto) 6.2 uL; Neutrophils % (auto) 72.4 % (37.0-80.0); Platelet Count (auto) 542 10^3/uL (140-450); Red Blood Cells 4.52 10^6/uL (4.5-5.90); Red Cell Distribution Width 19.9 % (11.8-14.3); White Blood Cell 8.5 10^3/uL (4.4-10.8)
[2018-03-03 22:55] LABS: Albumin 3.4 g/dL (3.4-5.0); BUN/Creatinine Ratio 17.1; Potassium 3.5 mmol/L (3.5-5.1)
[2018-03-03 22:58] LABS: Bilirubin, Total 0.3 mg/dL (0.2-1.0); Total Protein 7.9 g/dL (6.4-8.2)
[2018-03-03 23:59] VITALS: BP 131/81
== END 2018-03-04 01:00 | disposition home or self-care (01) ==
LOC: EDBD 20:44 → ER 20:49
DX: S40.011A Contusion of right shoulder, initial encounter (principal); S70.01XA Contusion of right hip, initial encounter; M54.5 Low back pain; G89.29 Other chronic pain; K21.9 Gastro-esophageal reflux disease without esophagitis; I10 Essential (primary) hypertension; Z88.8 Allergy status to other drugs, medicaments and biological substances; Z88.6 Allergy status to analgesic agent; Z87.891 Personal history of nicotine dependence; W18.39XA Other fall on same level, initial encounter; Y93.89 Activity, other specified; Y99.8 Other external cause status; Y92.89 Other specified places as the place of occurrence of the external cause
CPT/HCPCS: 36415; 73030; 73502; 80053; 85025; 93005; 96374; 99284; J1170; J7030

== ENCOUNTER 2018-03-14 10:19 | Emergency (ER) | payer MEDICAID ==
[~2018-03-14] VITALS: Ht 177.8 cm; Wt 68.0 kg
[2018-03-14 10:55] LABS: Basophils # (auto) 0.1 uL; Eosinophils # (auto) 0.4 uL; Hemoglobin 10.7 g/dL (13.5-17.5); Monocytes # (auto) 0.9 uL; Neutrophils # (auto) 4.4 uL; White Blood Cell 6.8 10^3/uL (4.4-10.8)
[2018-03-14 10:57] LABS: Basophils % (auto) 0.9 % (0.0-2.0); Eosinophils % (auto) 5.3 % (0.0-7.0); Lymphocytes # (auto) 1.1 uL; Lymphocytes % (auto) 16.7 % (10.0-50.0); Mean Corpuscular Hemoglobin 26.5 pg (28.0-32.0); Mean Corpuscular Hgb Conc. 31.4 g/dL (32.0-36.0); Mean Corpuscular Volume 84.1 fL (80.0-100.0); Monocytes % (auto) 12.8 % (0.0-12.0); Neutrophils % (auto) 64.3 % (37.0-80.0); Platelet Count (auto) 404 10^3/uL (140-450); Red Blood Cells 4.04 10^6/uL (4.5-5.90); Red Cell Distribution Width 20.4 % (11.8-14.3)
[2018-03-14 11:08] LABS: Alanine Aminotransferase 25 U/L (16-61); Albumin 3.1 g/dL (3.4-5.0); Anion Gap 1 (5-15); Aspartate Aminotransferase 28 U/L (15-37); BUN/Creatinine Ratio 16.7; Blood Urea Nitrogen 13 mg/dL (7-18); Calcium 8.8 mg/dL (8.5-10.1); Carbon Dioxide 31 mmol/L (21-32); Chloride 105 mmol/L (98-107); GFR African American 130 mL/min; GFR Non-African American 107 mL/min; Glucose 104 mg/dL (74-106); Magnesium 2.5 mg/dL (1.6-2.6); Potassium 4.4 mmol/L (3.5-5.1); Sodium 137 mmol/L (136-145)
[2018-03-14 11:13] LABS: Alkaline Phosphatase 78 U/L (45-117); Bilirubin, Total 0.2 mg/dL (0.2-1.0); Total Protein 7.2 g/dL (6.4-8.2)
[2018-03-14 12:55] VITALS: BP 150/89
== END 2018-03-14 13:31 | disposition home or self-care (01) ==
LOC: EDBD 10:19 → ER 10:19
DX: K92.1 Melena (principal); C18.9 Malignant neoplasm of colon, unspecified; K21.9 Gastro-esophageal reflux disease without esophagitis; I10 Essential (primary) hypertension; Z87.891 Personal history of nicotine dependence; Z88.6 Allergy status to analgesic agent; Z88.5 Allergy status to narcotic agent; Z88.8 Allergy status to other drugs, medicaments and biological substances; Z79.891 Long term (current) use of opiate analgesic; Z79.899 Other long term (current) drug therapy
CPT/HCPCS: 36415; 80053; 83735; 84484; 85025; 93005

== ENCOUNTER 2018-03-29 08:07 | Emergency (ER) | payer MEDICAID ==
[~2018-03-29] VITALS: Ht 172.7 cm; Wt 59.0 kg
[2018-03-29] MEDS ORDERED: SODIUM CHLORIDE 0.9% 1,000 ML IV ONE (08:23)
[2018-03-29] MEDS ORDERED: ONDANSETRON HCL 4 MG/2 ML VIAL IV ONE (08:30)
[2018-03-29] MEDS ORDERED: HYDROcodone-ACET 10/325MG TAB PO ONE (09:30)
[2018-03-29 09:36] LABS: Eosinophils # (auto) 0.1 uL; Hemoglobin 11.4 g/dL (13.5-17.5); Lymphocytes # (auto) 0.8 uL
[2018-03-29 09:38] LABS: Basophils # (auto) 0.1 uL; Basophils % (auto) 1.1 % (0.0-2.0); Eosinophils % (auto) 1.4 % (0.0-7.0); Hematocrit 35.7 % (41.0-53.0); Lymphocytes % (auto) 10.2 % (10.0-50.0); Mean Corpuscular Hemoglobin 26.9 pg (28.0-32.0); Mean Corpuscular Hgb Conc. 31.9 g/dL (32.0-36.0); Mean Corpuscular Volume 84.3 fL (80.0-100.0); Monocytes # (auto) 1.2 uL; Monocytes % (auto) 14.7 % (0.0-12.0); Neutrophils # (auto) 5.8 uL; Neutrophils % (auto) 72.6 % (37.0-80.0); Platelet Count (auto) 509 10^3/uL (140-450); Red Blood Cells 4.24 10^6/uL (4.5-5.90); Red Cell Distribution Width 19.4 % (11.8-14.3)
[2018-03-29 09:46] LABS: INR 1.01 (0.9-1.15); Prothrombin Time 10.8 sec (9.27-12.13)
[2018-03-29 09:50] LABS: BUN/Creatinine Ratio 18.6; Calcium 8.1 mg/dL (8.5-10.1); Potassium 4.3 mmol/L (3.5-5.1)
[2018-03-29 09:53] LABS: Bilirubin, Total 0.2 mg/dL (0.2-1.0); Total Protein 6.9 g/dL (6.4-8.2)
[2018-03-29 10:32] VITALS: BP 102/48
== END 2018-03-29 11:33 | disposition home or self-care (01) ==
LOC: ER 08:07 → EDBD 08:07 → ER 11:33
DX: K92.1 Melena (principal); K21.9 Gastro-esophageal reflux disease without esophagitis; I10 Essential (primary) hypertension; Z87.440 Personal history of urinary (tract) infections; Z87.891 Personal history of nicotine dependence; Z85.048 Personal history of other malignant neoplasm of rectum, rectosigmoid junction, and anus; Z88.6 Allergy status to analgesic agent
CPT/HCPCS: 36415; 80053; 85025; 85610; 93005; 96374; 99284; J2405; J7030